=== PATIENT | male | born 1950 | race Caucasian/White ===

== ENCOUNTER 2016-12-21 16:25 | Observation (INO) | payer BC ==
[2016-12-21] MEDS ORDERED: HYDROmorphone 1 MG/ML 1 ML SYRINGE IVP STA (18:44)
[2016-12-21] MEDS ORDERED: SODIUM CHLORIDE 0.9% 1,000 ML IV STA (18:44)
--- NOTE | 2016-12-21 18:51 | ED ---
General Adult HPI - General Chief complaint: Urogenital Stated complaint: Male Time Seen by Provider: 12/21/16 18:28 Source: patient, RN notes reviewed Mode of arrival: ambulatory Limitations: no limitations - History of Present Illness Initial comments: 66 yo male presents to emergency room chief complaint of thrombosed hemorrhoids patient does have a history of hemorrhoids.. Patient states that he went to Dr. Haider's office today Dr. Mccabe states he could not do this here and that he needs to go to the emergency department and he needed to see Dr. Haider partner for surgery. The patient states that that is what he was told. He states that his primary issue started about 2 weeks ago and just gotten worse. Patient states is unable to sleep last night due to the hemorrhoids. Patient states that he is not on any blood thinners. Patient states that he is not currently having any symptoms. Patient states just a dull achy type pain in the anal area.Patient denies any recent fever, chills, shortness of breath, chest pain, back pain, abdominal pain, nausea vomiting, numbness or tingling, dysuria or hematuria, constipation or diarrhea, headaches or visual changes, or any other current symptoms. - Related Data Home Medications Medication Instructions Recorded Confirmed No Known Home Medications [No 12/21/16 12/21/16 Known Home Medications] Allergies Allergy/AdvReac Type Severity Reaction Status Date / Time amoxicillin AdvReac Abdominal Verified 12/21/16 18:57 Pain Antihistamines - Alkylamine AdvReac Unknown Verified 12/21/16 18:57 morphine AdvReac Itching Verified 12/21/16 18:57 Review of Systems ROS Statement: Those systems with pertinent positive or pertinent negative responses have been documented in the HPI. ROS Other: All systems not noted in ROS Statement are negative. Past Medical History Past Medical History: GERD/Reflux Additional Past Medical History / Comment(s): DVT, hemorrhoids History of Any Multi-Drug Resistant Organisms: None Reported Past Surgical History: Appendectomy, Back Surgery, Orthopedic Surgery, Tonsillectomy Past Psychological History: No Psychological Hx Reported Smoking Status: Never smoker Past Alcohol Use History: None Reported Past Drug Use History: None Reported General Exam Limitations: no limitations General appearance: alert, in no apparent distress ENT exam: Present: normal exam, mucous membranes moist Neck exam: Present: normal inspection. Absent: tenderness, meningismus, lymphadenopathy Respiratory exam: Present: normal lung sounds bilaterally. Absent: respiratory distress, wheezes, rales, rhonchi, stridor Cardiovascular Exam: Present: regular rate, normal rhythm, normal heart sounds. Absent: systolic murmur, diastolic murmur, rubs, gallop, clicks Rectal exam: Present: hemorrhoids (Thrombosed), tenderness Neurological exam: Present: alert, oriented X3, CN II-XII intact. Absent: motor sensory deficit Psychiatric exam: Present: normal affect, normal mood Skin exam: Present: warm, dry, intact, normal color. Absent: rash Course Vital Signs 12/21/16 12/21/16 17:17 18:57 Temperature 97.8 F Pulse Rate 84 87 Respiratory 20 15 Rate Blood Pressure 145/83 125/65 O2 Sat by Pulse 98 98 Oximetry Medical Decision Making - Medical Decision Making 66-year-old male presents to emergency room chief complaint of thrombosed external hemorrhoids. At this time patient's blood work is reviewed. Dr. Steward was contacted she wanted the patient started on Unasyn into the ampulla midnight for possible surgery in the morning. Patient in agreement with the plan. - Lab Data Result diagrams: 12/21/16 19:05 12/21/16 19:05 Lab Results 12/21/16 12/21/16 12/21/16 Range/Units 19:05 19:05 19:05 WBC 8.1 (3.8-10.6) k/uL RBC 4.86 (4.30-5.90) m/uL Hgb 15.9 (13.0-17.5) gm/dL Hct 46.6 (39.0-53.0) % MCV 95.9 (80.0-100.0) fL MCH 32.6 (25.0-35.0) pg MCHC 34.0 (31.0-37.0) g/dL RDW 13.0 (11.5-15.5) % Plt Count 164 (150-450) k/uL Neutrophils % 69 % Lymphocytes % 22 % Monocytes % 5 % Eosinophils % 1 % Basophils % 0 % Neutrophils # 5.6 (1.3-7.7) k/uL Lymphocytes # 1.8 (1.0-4.8) k/uL Monocytes # 0.4 (0-1.0) k/uL Eosinophils # 0.1 (0-0.7) k/uL Basophils # 0.0 (0-0.2) k/uL PT 11.9 (9.0-12.0) sec INR 1.2 (<1.1) APTT 26.6 (22.0-30.0) sec Sodium 139 (137-145) mmol/L Potassium 4.0 (3.5-5.1) mmol/L Chloride 101 (98-107) mmol/L Carbon Dioxide 24 (22-30) mmol/L Anion Gap 14 mmol/L BUN 12 (9-20) mg/dL Creatinine 1.09 (0.66-1.25) mg/dL Est GFR (MDRD) Af Amer >60 (>60 ml/min/1.73 sqM) Est GFR (MDRD) Non-Af >60 (>60 ml/min/1.73 sqM) Glucose 90 (74-99) mg/dL Calcium 9.5 (8.4-10.2) mg/dL Total Bilirubin 1.4 H (0.2-1.3) mg/dL AST 19 (17-59) U/L ALT 32 (21-72) U/L Alkaline Phosphatase 68 (38-126) U/L Total Protein 7.7 (6.3-8.2) g/dL Albumin 4.5 (3.5-5.0) g/dL Disposition Clinical Impression: Thrombosed external hemorrhoid Disposition: ADMITTED IP TO THIS [facility] Condition: Stable Time of Disposition: 19:43 Decision Date: 12/21/16 Decision Time: 19:44
[2016-12-21 19:17] LABS: Basophils % (A) 0 %; CH 33.3; CHCM 34.9; Eosinophils # (A) 0.1 k/uL (0-0.7); Eosinophils % (A) 1 %; HCT 46.6 % (39.0-53.0); HDW 2.66; HGB 15.9 gm/dL (13.0-17.5); Luc # (Auto) 0.19; Luc % (Auto) 2; Lymphocytes # (A) 1.8 k/uL (1.0-4.8); Lymphocytes % (A) 22 %; MCH 32.6 pg (25.0-35.0); MCV 95.9 fL (80.0-100.0); Mean Platelet Volume 8.2; Monocytes # (A) 0.4 k/uL (0-1.0); Monocytes % (A) 5 %; Neutrophils # (A) 5.6 k/uL (1.3-7.7); Neutrophils % (A) 69 %; RBC 4.86 m/uL (4.30-5.90); WBC 8.1 k/uL (3.8-10.6); WBC (Perox) 7.97
[2016-12-21] MEDS ORDERED: AMPICILLIN-SULBACTAM 3 GM in SODIUM CHLORIDE 0.9% 100 ML IVPB STA (19:21)
[2016-12-21 19:24] LABS: ALT 32 U/L (21-72); AST 19 U/L (17-59); Alkaline Phosphatase 68 U/L (38-126); Anion Gap 14 mmol/L; Blood Urea Nitrogen 12 mg/dL (9-20); Calcium 9.5 mg/dL (8.4-10.2); Carbon Dioxide 24 mmol/L (22-30); Chloride 101 mmol/L (98-107); Glucose 90 mg/dL (74-99); Non-African American GFR(MDRD) >60 (>60 ml/min/1.73 sqM); Sodium 139 mmol/L (137-145); Total Bilirubin 1.4 mg/dL (0.2-1.3); Total Protein 7.7 g/dL (6.3-8.2)
[2016-12-21 19:25] LABS: INR 1.2 (<1.1); Partial Thromboplastin Time 26.6 sec (22.0-30.0); Prothrombin Time 11.9 sec (9.0-12.0)
[2016-12-21] MEDS ORDERED: NALOXONE 0.4 MG/ML 1 ML VIAL IV PRN (19:44)
[2016-12-21] MEDS ORDERED: ALPRAZolam 0.25 MG TAB PO PRN (19:44)
[2016-12-21] MEDS ORDERED: ONDANSETRON 4 MG/2 ML VIAL IVP PRN (19:44)
[2016-12-21] MEDS ORDERED: MAGNESIUM HYDROXIDE 2,400 MG/10 ML CUP PO PRN (19:44)
[2016-12-21] MEDS ORDERED: ACETAMINOPHEN TAB 325 MG TAB PO PRN (19:44)
[2016-12-21] MEDS ORDERED: HYDROcodone/APAP 5-325MG 1 EACH TAB PO PRN (19:44)
[2016-12-21] MEDS: HYDROmorphone 1 MG/ML 1 ML SYRINGE IV PRN (22:24)
[2016-12-21] MEDS: SODIUM CHLORIDE 0.9% 1,000 ML IV SCH (22:25)
[2016-12-21] MEDS: AMPICILLIN-SULBACTAM 3 GM in SODIUM CHLORIDE 0.9% 100 ML IVPB SCH (23:13)
[2016-12-22] MEDS: HYDROmorphone 1 MG/ML 1 ML SYRINGE IV PRN ×3 (01:05→10:04)
[2016-12-22 07:10] LABS: Basophils % (A) 0 %; CH 32.9; CHCM 33.6; Eosinophils % (A) 1 %; HCT 44.6 % (39.0-53.0); HDW 2.63; HGB 14.7 gm/dL (13.0-17.5); Luc # (Auto) 0.18; Luc % (Auto) 2; Lymphocytes # (A) 1.4 k/uL (1.0-4.8); Lymphocytes % (A) 18 %; MCH 32.4 pg (25.0-35.0); MCHC 32.9 g/dL (31.0-37.0); MCV 98.3 fL (80.0-100.0); Mean Platelet Volume 8.1; Monocytes # (A) 0.4 k/uL (0-1.0); Monocytes % (A) 6 %; Neutrophils # (A) 5.6 k/uL (1.3-7.7); Neutrophils % (A) 73 %; RBC 4.54 m/uL (4.30-5.90); WBC 7.7 k/uL (3.8-10.6)
[2016-12-22 07:42] LABS: ALT 34 U/L (21-72); AST 15 U/L (17-59); Alkaline Phosphatase 56 U/L (38-126); Anion Gap 9 mmol/L; Blood Urea Nitrogen 11 mg/dL (9-20); Calcium 8.9 mg/dL (8.4-10.2); Carbon Dioxide 24 mmol/L (22-30); Chloride 106 mmol/L (98-107); Glucose 102 mg/dL (74-99); Non-African American GFR(MDRD) >60 (>60 ml/min/1.73 sqM); Sodium 139 mmol/L (137-145); Total Bilirubin 1.4 mg/dL (0.2-1.3); Total Protein 6.5 g/dL (6.3-8.2)
[2016-12-22] MEDS: AMPICILLIN-SULBACTAM 3 GM in SODIUM CHLORIDE 0.9% 100 ML IVPB SCH ×3 (07:42→23:32)
[2016-12-22 09:27] VITALS: BMI 27.8
[2016-12-22] MEDS ORDERED: IV FLUID CONTINUATION 400 ML IV ONE (10:25)
[2016-12-22] MEDS ORDERED: CLINDAMYCIN 600 MG in DEXTROSE 5% IN WATER 50 ML IVPB STA ×2 (10:40)
--- NOTE | 2016-12-22 10:43 | P.GSHP ---
History of Present Illness H&P Date: 12/22/16 Chief Complaint: painful hemorrhoids 4-year-old male who presented with perianal pain and bleeding. Going on for a few days. He is a history of hemorrhage. There is no history of nausea vomiting. Denies abdominal pain. No fever no chills. He does not use any suppositories. - Constitutional Constitutional: Denies chills, Denies fever - EENT Eyes: denies blurred vision, denies pain Ears, nose, mouth and throat: Denies headache, Denies sore throat - Cardiovascular Cardiovascular: Denies chest pain, Denies shortness of breath - Respiratory Respiratory: Denies cough, Denies 7 - Gastrointestinal Gastrointestinal: Denies abdominal pain, Denies diarrhea, Denies nausea, Denies vomiting - Musculoskeletal Musculoskeletal: Denies myalgias Past Medical History Past Medical History: GERD/Reflux Additional Past Medical History / Comment(s): DVT, hemorrhoids History of Any Multi-Drug Resistant Organisms: None Reported Past Surgical History: Appendectomy, Back Surgery, Orthopedic Surgery, Tonsillectomy Past Psychological History: No Psychological Hx Reported Smoking Status: Former smoker Past Alcohol Use History: None Reported Past Drug Use History: None Reported Medications and Allergies Home Medications Medication Instructions Recorded Confirmed Type No Known Home Medications [No 12/21/16 12/21/16 History Known Home Medications] Allergies Allergy/AdvReac Type Severity Reaction Status Date / Time amoxicillin AdvReac Abdominal Verified 12/22/16 10:26 Pain Antihistamines - Alkylamine AdvReac Unknown Verified 12/22/16 10:26 morphine AdvReac Itching Verified 12/22/16 10:26 Surgical - Exam Vital Signs Temp Pulse Resp BP Pulse Ox 97.8 F 84 20 145/83 98 12/21/16 17:17 12/21/16 17:17 12/21/16 17:17 12/21/16 17:17 12/21/16 17:17 - General well developed, well nourished, no distress - Eyes normal ocular movement, no icteric - ENT no hearing loss, no congestion - Respiratory normal expansion - Cardiovascular Rhythm: regular - Abdomen Anal region was inspected and there were congested hemorrhoids. Abdomen: soft, non tender, no guarding, no rigid, no rebound Results - Labs 12/22/16 06:36 12/22/16 06:36 Abnormal Lab Results - Last 24 Hours (Table) 12/22/16 Range/Units 06:36 Glucose 102 H (74-99) mg/dL Total Bilirubin 1.4 H (0.2-1.3) mg/dL AST 15 L (17-59) U/L Diabetes panel 12/22/16 Range/Units 06:36 Sodium 139 (137-145) mmol/L Potassium 5.0 (3.5-5.1) mmol/L Chloride 106 (98-107) mmol/L Carbon Dioxide 24 (22-30) mmol/L BUN 11 (9-20) mg/dL Creatinine 0.99 (0.66-1.25) mg/dL Glucose 102 H (74-99) mg/dL Calcium 8.9 (8.4-10.2) mg/dL AST 15 L (17-59) U/L ALT 34 (21-72) U/L Alkaline Phosphatase 56 (38-126) U/L Total Protein 6.5 (6.3-8.2) g/dL Albumin 3.8 (3.5-5.0) g/dL Calcium panel 12/22/16 Range/Units 06:36 Calcium 8.9 (8.4-10.2) mg/dL Albumin 3.8 (3.5-5.0) g/dL Pituitary panel 12/22/16 Range/Units 06:36 Sodium 139 (137-145) mmol/L Potassium 5.0 (3.5-5.1) mmol/L Chloride 106 (98-107) mmol/L Carbon Dioxide 24 (22-30) mmol/L BUN 11 (9-20) mg/dL Creatinine 0.99 (0.66-1.25) mg/dL Glucose 102 H (74-99) mg/dL Calcium 8.9 (8.4-10.2) mg/dL Adrenal panel 12/22/16 Range/Units 06:36 Sodium 139 (137-145) mmol/L Potassium 5.0 (3.5-5.1) mmol/L Chloride 106 (98-107) mmol/L Carbon Dioxide 24 (22-30) mmol/L BUN 11 (9-20) mg/dL Creatinine 0.99 (0.66-1.25) mg/dL Glucose 102 H (74-99) mg/dL Calcium 8.9 (8.4-10.2) mg/dL Total Bilirubin 1.4 H (0.2-1.3) mg/dL AST 15 L (17-59) U/L ALT 34 (21-72) U/L Alkaline Phosphatase 56 (38-126) U/L Total Protein 6.5 (6.3-8.2) g/dL Albumin 3.8 (3.5-5.0) g/dL Assessment and Plan (1) Thrombosed external hemorrhoid Status: Acute Plan: Plan is to do an EUA with open omentectomy. The patient is significantly painful he understands and is willing to proceed.
[2016-12-22] MEDS ORDERED: BUPIVACAINE LIPOSOME/PF 1.3% 20 ML, SODIUM CHLORIDE 0.9% 10 ML MISCELLANE ONE ×2 (10:44)
[2016-12-22] MEDS ORDERED: LACTATED RINGERS 1,000 ML IV ONE (10:57)
[2016-12-22] MEDS ORDERED: fentaNYL (PF) 50 MCG/ML 2 ML AMP ONE (11:08)
[2016-12-22] MEDS ORDERED: LIDOCAINE 1% INJ 10MG/ML (20 ML MDV) ONE (11:08)
[2016-12-22] MEDS ORDERED: MIDAZOLAM 2 MG/2 ML VIAL ONE (11:08)
[2016-12-22] MEDS ORDERED: PROPOFOL 10 MG/ML 20 ML VIAL IV ONE (11:08)
[2016-12-22] MEDS ORDERED: SUCCINYLCHOLINE CHLORIDE 100 MG/5 ML SYR IV ONE (11:08)
--- NOTE | 2016-12-22 12:49 | P.OP ---
Date of Procedure: 12/22/16 Preoperative Diagnosis: Thrombosed hemorrhois Postoperative Diagnosis: Thrombosed internal and external hermohoid Procedure(s) Performed: Open hemorrhoidectomy with ligasure Anesthesia: PAGE Surgeon: Norberto Bass Estimated Blood Loss (ml): 15 Pathology: other Condition: stable Disposition: PACU Indications for Procedure: Painful swollen hemorrhoids Operative Findings: Right anterior internal and external hemorrhoids were thrombosed. No other hemorrhoids were identified. Description of Procedure: 66-year-old male who presented with a thrombosed hemorrhoid and severe pain and bleeding per rectum with bowel movements. Patient wouldn't fit in the preop operating holding area and after appropriate informed consent was obtained taken to the operating room placed in the supine position and given general anesthesia with LMA intubation. The patient was then placed in prone jackknife position. The area was clipped and prepped in the usual sterile surgical fashion was appropriately retracted with the help of tape. After appropriate timeout the enlarged hemorrhoid was first well exposed with the help of retractor and then grasped with the help of an Allis brought up into division. Ligature was used to dissection along the base of the hemorrhoid tests excising the entire hemorrhoid and its plexus. Care was taken to stay above the anal sphincter not to injure that. The eviction specialist was however exposed and one area. It was however not bleeding. Once the complete Right Anterior Internal and Internal Hemorrhoidal Vessel Plexus Was Completely Removed the left anterior and posterior hemorrhoidal cushions were inspected and were noted to be of normal size. They were not removed at this setting. His no bleeding from the liver not swollen. After removal of the entire right anterior hemorrhoidal plexus the perianal swelling also reduced. Hemostasis was secured secondarily with the help of 2-0 Vicryl stitches. Vaseline dressing was applied and ABDs was held in place with the help of a underpants. Patient was exudate and taken to recovery room in stable condition.
--- NOTE | 2016-12-22 12:52 | P.DS ---
Providers Date of admission: 12/21/16 20:58 Expected date of discharge: 12/23/16 Attending physician: Hillary Steward Primary care physician: Wayne Amaya - Discharge Diagnosis(es) (1) Thrombosed external hemorrhoid Current Visit: Yes Status: Acute Hospital Course: A 66-year-old male who was initially seen in the office on December 21 but due to the size of the thrombosed external hemorrhoid the patient was sent to the emergency room but he came to the emergency room late around 7 PM and therefore was kept overnight nothing by mouth for the procedure be performed on December 22. The patient underwent an EUA with open hemorrhoidectomy using ligature. Patient TO well though no complications. Postoperatively the patient did well. Intraoperatively extra was used. Postoperatively the patient's diet was advanced and he was placed milk of magnesia. Has. He was given instruction regarding sitz baths. Patient is to follow-up in my clinic after discharge in a week. Is to use milk of magnesia regularly and uses baths for that. A type buccal pain medications were prescribed for discharge. Procedures: OPen hmerhoidectomy with ligasure Patient Condition at Discharge: Fair Plan - Discharge Summary New Discharge Prescriptions: HYDROcodone/APAP 5-325MG [[place] 5-325] 1 tab PO Q4HR PRN #40 tab PRN Reason: Pain Magnesium Hydroxide [Milk of Magnesia] 30 ml PO Q24H #1200 ml Discharge Medication List HYDROcodone/APAP 5-325MG [[place] 5-325] 1 tab PO Q4HR PRN #40 tab 12/22/16 [Rx] Magnesium Hydroxide [Milk of Magnesia] 30 ml PO Q24H #1200 ml 12/22/16 [Rx] Follow up Appointment(s)/Referral(s): Norberto Bass MD [STAFF PHYSICIAN] - 1 Week Wayne Amaya MD [Primary Care Provider] - 1-2 days Patient Instructions/Handouts: Hemorrhoids (DC), Hemorrhoids (GEN), Thrombosed Hemorrhoid (GEN), Hemorrhoidectomy (DC), Hemorrhoidectomy (GEN) Activity/Diet/Wound Care/Special Instructions: Regular diet Use Sizt bath 3- 4 times a day Use stool softeners as needed Start taking motrin withe the norco in 2 days and then wean off the norco and use motrin Discharge Disposition: HOME SELF-CARE
[2016-12-22] MEDS: SODIUM CHLORIDE 0.9% 1,000 ML IV SCH (23:33)
[2016-12-23] MEDS: SODIUM CHLORIDE 0.9% 1,000 ML IV SCH (05:05)
[2016-12-23] MEDS: AMPICILLIN-SULBACTAM 3 GM in SODIUM CHLORIDE 0.9% 100 ML IVPB SCH (07:35)
[2016-12-23 07:41] VITALS: BP 138/80; PULSE 78; RESP 15; TEMP 98.6
== END 2016-12-23 13:19 | disposition home or self-care (01) ==
LOC: EC 16:25 → 3SUR 20:58
PROVIDERS: ADMIT Surgery; ATTEND Surgery
DX: K64.5 Perianal venous thrombosis (principal); Z87.891 Personal history of nicotine dependence; Z88.5 Allergy status to narcotic agent; Z88.0 Allergy status to penicillin; Z88.8 Allergy status to other drugs, medicaments and biological substances
CPT/HCPCS: 46255; 36415; 86900; 86901; 88304; 80053 ×2; 85025 ×2; 85610; 85730; 86850; 99284; 96365; 96375; 96361; G0378 ×3; J2250; J2405; J2001; J3010; J1170 ×2; J0295 ×3; J0330; C9290; J2704; 96366; 96376

== ENCOUNTER 2018-01-30 11:56 | Inpatient (IN) | payer BC ==
[2018-01-30] MEDS ORDERED: ASPIRIN 81 MG PO STA (12:20)
[2018-01-30] MEDS ORDERED: SODIUM CHLORIDE 0.9% 1,000 ML IV STA (12:20)
[2018-01-30] MEDS ORDERED: ONDANSETRON 4 MG/2 ML VIAL IVP STA (12:20)
[2018-01-30] MEDS ORDERED: NITROGLYCERIN OINT 1 INCH/GM PACKET TOPICAL STA (12:20)
[2018-01-30 12:43] LABS: Basophils % (A) 0 %; Eosinophils # (A) 0.1 k/uL (0-0.7); Eosinophils % (A) 1 %; HCT 45.8 % (39.0-53.0); HGB 16.6 gm/dL (13.0-17.5); Lymphocytes # (A) 1.8 k/uL (1.0-4.8); Lymphocytes % (A) 20 %; MCH 33.3 pg (25.0-35.0); MCHC 36.2 g/dL (31.0-37.0); MCV 91.9 fL (80.0-100.0); Mean Platelet Volume 8.5; Monocytes # (A) 0.5 k/uL (0-1.0); Monocytes % (A) 5 %; Neutrophils # (A) 6.2 k/uL (1.3-7.7); Neutrophils % (A) 71 %; Platelet Count 150 k/uL (150-450); RBC 4.98 m/uL (4.30-5.90); RDW 12.1 % (11.5-15.5); WBC 8.7 k/uL (3.8-10.6)
--- NOTE | 2018-01-30 12:51 | XR ---
EXAMINATION TYPE: XR chest 2V DATE OF EXAM: 01/30/2018 COMPARISON: 01/18/2016 HISTORY: Shortness of breath TECHNIQUE: Frontal and lateral views of the chest are obtained. FINDINGS: Scattered senescent parenchymal changes noted. Hyperinflation compatible with COPD. No evidence for infiltrate. No evidence for atelectasis. Heart size is stable. Mediastinal structures are stable and grossly unremarkable. No evidence for hilar prominence. Degenerative changes dorsal spine. IMPRESSION: 1. No evidence for acute pulmonary disease.
[2018-01-30 12:59] LABS: INR 1.1 (<1.2); Partial Thromboplastin Time 24.7 sec (22.0-30.0); Prothrombin Time 10.4 sec (9.0-12.0)
[2018-01-30 13:04] LABS: D-Dimer 9.08 mg/L FEU (<0.60)
[2018-01-30 13:08] LABS: Albumin 4.2 g/dL (3.5-5.0); Calcium 9.9 mg/dL (8.4-10.2); Potassium 5.3 mmol/L (3.5-5.1); Total Bilirubin 1.6 mg/dL (0.2-1.3); Total Protein 7.4 g/dL (6.3-8.2)
[2018-01-30 13:22] LABS: Creatine Kinase 31 U/L (55-170)
[2018-01-30 13:35] LABS: Creatine Kinase MB <0.2 ng/mL (0.0-2.4); Troponin I <0.012 ng/mL (0.000-0.034)
[2018-01-30] MEDS ORDERED: RX INFO: IV CONTRAST WAS GIVEN 1 EACH MISC MISCELLANE PRN (14:32)
--- NOTE | 2018-01-30 15:14 | CT ---
EXAMINATION TYPE: CT chest angio for PE DATE OF EXAM: 01/30/2018 COMPARISON: NONE HISTORY: chest pain today, r/o PE CT DLP: 527 mGycm CONTRAST: CT chest with contrast and 3D reconstruction with MIP imaging is performed with IV Contrast, patient injected with 96cc mL of Isovue 370. Contrast-enhanced CT of the chest was performed through the course of the pulmonary arteries with harvey g and mediastinal window settings submitted. 3D reconstruction with MIP imaging was also performed. PULMONARY ARTERIES: There is bilateral at least moderate pulmonary embolism with filling of the right pulmonary artery and extension into the right lower pulmonary arterial branches and to a lesser exte nt the right upper lobe pulmonary arterial branches. To a lesser extent there is thrombus within the left main pulmonary artery extending into the left lower lobe pulmonary arterial branches. Relative s paring of the left upper lobe branches. Early features of right heart strain difficult to exclude giv en flattening of the interventricular septum and reflux of contrast into the inferior vena cava. Engo rged azygous system noted as well. LUNGS: The lungs are clear and free of infiltrate. No evidence for atelectasis. No pulmonary nodule or mass is detected. Small left-sided pleural effusion noted. MEDIASTINUM: Thoracic aorta is of nor mal caliber,however, evaluation is limited given timing of the contrast bolus. If there is concern f or thoracic aortic pathology consider KACIE. Correlate clinically . The heart is not enlarged. No madison dence for mediastinal mass. No mediastinal lymph nodes greater than 1cm. HILAR STRUCTURES: No evidence for mass. No hilar lymph nodes greater than 1 cm. UPPER ABDOMEN: No significant abnormality is seen. IMPRESSION: 1. Moderately severe pulmonary embolism as discussed above. Early right heart strain difficult to ex clude. Small left-sided pleural effusion. ER physician notified at time of exam completion via telephone by the undersigned.
--- NOTE | 2018-01-30 15:33 | ED ---
Chest Pain HPI - General Chief Complaint: Chest Pain Stated Complaint: Chest Pain Time Seen by Provider: 01/30/18 12:12 Source: patient Mode of arrival: wheelchair Limitations: no limitations - History of Present Illness Initial Comments: 68 years old male comes in with a chest pain, chest pain started this morning he is also short winded and he said pain gets worse when he takes a deep breath have a history of gastroesophageal reflux disease DVT he said DVT was years ago and chest pain started about 10 AM today lasted about 2 and half hour just ongoing and worse with deep breaths he denies any fever no chills no headaches no neck stiffness no abdominal pain no frequency urgency dysuria no symptoms like TIA or CVA - Related Data Home Medications Medication Instructions Recorded Confirmed L.acidoph,Paracasei, B.lactis 1 cap PO DAILY 01/30/18 01/30/18 [Probiotic] Multivitamins, Thera [Multivitamin 1 tab PO DAILY 01/30/18 01/30/18 (formulary)] Omeprazole 20 mg PO DAILY PRN 01/30/18 01/30/18 Wheat Dextrin [Benefiber] 1 pack PO DAILY 01/30/18 01/30/18 Allergies Allergy/AdvReac Type Severity Reaction Status Date / Time amoxicillin AdvReac Abdominal Verified 01/30/18 12:25 Pain Antihistamines - Alkylamine AdvReac Unknown Verified 01/30/18 12:25 morphine AdvReac Itching Verified 01/30/18 12:25 Review of Systems ROS Statement: Those systems with pertinent positive or pertinent negative responses have been documented in the HPI. ROS Other: All systems not noted in ROS Statement are negative. EKG Findings - EKG Comments: EKG Findings:: EKG is a normal sinus rhythm ventricular rate is 89 LA interval is 178 QRS duration is 82 QT/QTC 358/435 review of this EKG does not reveal any ST elevation or ST depression Past Medical History Past Medical History: GERD/Reflux Additional Past Medical History / Comment(s): DVT, hemorrhoids History of Any Multi-Drug Resistant Organisms: None Reported Past Surgical History: Appendectomy, Back Surgery, Orthopedic Surgery, Tonsillectomy Past Psychological History: No Psychological Hx Reported Smoking Status: Former smoker Past Alcohol Use History: None Reported Past Drug Use History: None Reported General Exam - General Exam Comments Initial Comments: General: The patient is awake and alert, in no distress, and does not appear acutely ill. Skin: Skin is warm and dry and no rashes or lesions are noted. Eye: Pupils are equal, round and reactive to light, extra-ocular movements are intact; there is normal conjunctiva bilaterally. Ears, nose, mouth and throat: There are moist mucous membranes and no oral lesions. Neck: The neck is supple, there is no tenderness or JVD. Cardiovascular: There is a regular rate and rhythm. No murmur, rub or gallop is appreciated. Respiratory: To auscultation bilateral, no wheezing no rhonchi no distress respiratory johnson noticed Gastrointestinal: Soft, non-distended, non-tender abdomen without masses or organomegaly noted. There is no rebound or guarding present. Bowel sounds are unremarkable. Back: There is no tenderness to palpation in the midline. There is no obvious deformity. Musculoskeletal: Normal ROM, no tenderness, There is no pedal edema. There is no calf tenderness or swelling. No cords were appreciated. Neurological: CN II-XII intact, Cranial nerves III through XII are intact. There are no obvious motor or sensory deficits. Coordination appears grossly intact. Speech is normal. Psychiatric: Cooperative, appropriate mood & affect, normal judgment. Limitations: no limitations Course Vital Signs 01/30/18 01/30/18 01/30/18 11:58 12:51 14:25 Temperature 98.5 F Pulse Rate 93 76 79 Respiratory 18 17 18 Rate Blood Pressure 118/89 138/87 111/68 O2 Sat by Pulse 98 96 95 Oximetry 01/30/18 15:33 Temperature Pulse Rate 74 Respiratory 17 Rate Blood Pressure 120/78 O2 Sat by Pulse 97 Oximetry Critical Care Time Total Critical Care Time: 45 Critical Care Time: (Up for the heart disease, troponin is unremarkable cervical spine EKG, CBC was normal d-dimer is quite elevated as was greater than 9, we followed up with that CT angiogram chest, that's remarkable there is positive radiology called me back positive PE and right heart strain a bit of for pleural effusion, patient be admitted to Dr. Izquierdo's service and will consult cardiology she be heparinized in the ER Disposition Clinical Impression: Chest pain Disposition: ADMITTED IP TO THIS HOSP Condition: Good Referrals: Wayne Amaya MD [Primary Care Provider] - 1-2 days
[2018-01-30] MEDS ORDERED: HEPARIN SODIUM,PORCINE 5,000 UNIT/ML 1 ML VIAL IV ONE (15:37)
[2018-01-30] MEDS ORDERED: HEPARIN SODIUM,PORCINE 5,000 UNIT/ML 1 ML VIAL IV PRN (15:37)
[2018-01-30] MEDS ORDERED: ONDANSETRON 4 MG/2 ML VIAL IVP PRN (15:38)
[2018-01-30] MEDS ORDERED: ACETAMINOPHEN TAB 325 MG TAB PO PRN (15:38)
[2018-01-30] MEDS ORDERED: NALOXONE 0.4 MG/ML 1 ML VIAL IV PRN (15:38)
[2018-01-30] MEDS ORDERED: MORPHINE SULFATE 4 MG/ML SYRINGE IV PRN (15:38)
[2018-01-30] MEDS ORDERED: PANTOPRAZOLE 40 MG TABLET PO PRN (15:44)
[2018-01-30] MEDS: HEPARIN SOD,PORK IN 0.45% NACL 25,000 UNIT in 0.45% NACL 1 500ML.BAG IV SCH (16:04)
--- NOTE | 2018-01-30 20:00 | P.CNPUL ---
History of Present Illness Consult date: 01/30/18 Reason for consult: pulmonary embolism History of present illness: A pleasant 68-year-old male patient who presented to the emergency department because of an acute left-sided chest pain that was some what pleuritic in nature that started around 10 AM this morning and the patient was quite concerning for that reason he presented to hospital where he was found to have an elevated d-dimer and subsequently CT angios the chest showed bilateral pulmonary embolism more so on the right with early strain pattern involving the right ventricle. Troponins were negative. The patient was started on IV heparin and patient was admitted to the floor. Note that the patient was having symptoms of URI approximately 10 days ago. He had seen his primary care physician and he was given a course of Z-Ovi. His cough and congestion wheezing was subsiding. He is not known to have any previous history of lung disease or disorder. No history of bronchial asthma or emphysema. No previous history of pulmonary embolism. 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 He refers to smoking history that was very limited for only 10 years at the young age. 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 He admits that he has become sedentary after his recent URI and he was staying at home and not doing all other activity or walking. No history of malignancy. No history of any recent orthopedic surgeries. Has had previous back surgery back in 1999 and 2001 and the surgeries were essentially uncomplicated. Currently is hemodynamically stable. He is afebrile. He is on 2 L of oxygen nasal cannula with a pulse ox of 96% and no swelling lower extremities. No calf pain or tenderness. Remains on IV heparin. Review of Systems Constitutional: Denies chills, Denies fever Eyes: denies blurred vision, denies bulging eye, denies decreased vision Ears: right: tinnitus, deny: decreased hearing, ear discharge, earache Ears, nose, mouth and throat: Denies headache, Denies sore throat Cardiovascular: Reports chest pain, Reports decreased exercise tolerance, Reports shortness of breath Respiratory: Reports dyspnea, Reports respiratory infections, Reports wheezing Gastrointestinal: Denies abdominal pain, Denies diarrhea, Denies nausea, Denies vomiting Genitourinary: Reports as per HPI Musculoskeletal: Denies myalgias Musculoskeletal: absent: ankle pain, ankle stiffness, ankle swelling Integumentary: Denies pruritus, Denies rash Neurological: Denies numbness, Denies weakness Psychiatric: Denies anxiety, Denies depression Endocrine: Denies fatigue, Denies weight change Hematologic/Lymphatic: Reports as per HPI Allergic/Immunologic: Reports as per HPI Past Medical History Past Medical History: GERD/Reflux Additional Past Medical History / Comment(s): DVT, hemorrhoids History of Any Multi-Drug Resistant Organisms: None Reported Past Surgical History: Appendectomy, Back Surgery (Previous L4/L5 laminectomy done in the year 1999 and 2011), Orthopedic Surgery, Tonsillectomy Past Psychological History: No Psychological Hx Reported Smoking Status: Former smoker Past Alcohol Use History: None Reported Past Drug Use History: None Reported Medications and Allergies Home Medications Medication Instructions Recorded Confirmed Type L.acidoph,Paracasei, B.lactis 1 cap PO DAILY 01/30/18 01/30/18 History [Probiotic] Multivitamins, Thera [Multivitamin 1 tab PO DAILY 01/30/18 01/30/18 History (formulary)] Omeprazole 20 mg PO DAILY PRN 01/30/18 01/30/18 History Wheat Dextrin [Benefiber] 1 pack PO DAILY 01/30/18 01/30/18 History Allergies Allergy/AdvReac Type Severity Reaction Status Date / Time amoxicillin AdvReac Abdominal Verified 01/30/18 12:25 Pain Antihistamines - Alkylamine AdvReac Unknown Verified 01/30/18 12:25 morphine AdvReac Itching Verified 01/30/18 12:25 Physical Exam Vitals: Vital Signs Temp Pulse Pulse Resp BP BP Pulse Ox 01/30/18 18:15 97.2 F L 96 18 118/70 96 01/30/18 17:48 97.0 F L 97 17 116/67 97 01/30/18 15:33 74 17 120/78 97 01/30/18 14:25 79 18 111/68 95 01/30/18 12:51 76 17 138/87 96 01/30/18 11:58 98.5 F 93 18 118/89 98 Intake and Output 01/30/18 01/30/18 01/30/18 06:59 14:59 22:59 Other: Weight 95.254 kg The patient appeared well nourished and normally developed. Vital signs as documented. Head exam is unremarkable. No scleral icterus or corneal arcus noted. Neck is without jugular venous distension, thyromegaly, or carotid bruits. Carotid upstrokes are brisk bilaterally. Lungs are clear to auscultation and there is some prolongation of the expiratory phase of breathing and scattered expiratory wheezes throughout the lung alonzo bilaterally. Cardiac exam reveals the PMI to be normally sized and situated. Rhythm is regular. First and second heart sounds normal. No murmurs, rubs or gallops. Abdominal exam reveals normal bowel sounds, no masses, no organomegaly and no aortic enlargement. Extremities are nonedematous and both femoral and pedal pulses are normal. Neurologically the patient is awake and alert and the patient has no focal neurological deficit.Examination of the skin revealed no evidence of significant rashes, suspicious appearing nevi or other concerning lesions. Psychiatric to the patient is appropriate mood and affect Results - Laboratory Findings CBC and BMP: 01/30/18 12:10 01/30/18 12:10 PT/INR, D-dimer PT 10.4 sec (9.0-12.0) 01/30/18 12:10 INR 1.1 (<1.2) 01/30/18 12:10 D-Dimer 9.08 mg/L FEU (<0.60) H 01/30/18 12:10 Abnormal lab findings: Abnormal Labs 01/30/18 01/30/18 01/30/18 12:10 12:10 12:10 D-Dimer 9.08 H Potassium 5.3 H Total Bilirubin 1.6 H ALT 16 L Total Creatine Kinase 31 L - Diagnostic Findings Chest x-ray: image reviewed CT scan - chest: image reviewed Assessment and Plan Plan: Assessment 1 acute pulmonary embolism, bilateral, more so on the right involving the right upper lobe middle lobe and right lower lobe pulmonary artery branches and to lesser extent involving the left lower lobe and left main pulmonary artery branches. This is an unprovoked event. The patient had a recent URI with symptoms of bronchitis and he states that he has been essentially sedentary. Otherwise no other identifiable risk factors. He has had a previous history of DVT more than 15 years ago. 2 acute pleuritic left-sided chest pain secondary to above 3 acute bronchitis treated on outpatient basis with a course of Z-Ovi. The patient remains bronchospastic and wheezy. No evidence of any pneumonia 4 remote history of DVT of the left lower extremity Plan Keep the patient IV heparin. Obtain Doppler of the lower extremities. Obtain echocardiogram to assess LV function and look for any right ventricular strain pattern and measure pulmonary artery pressures if possible. We'll transition this patient to oral anticoagulants with the next 24 hours. In terms of his bronchospasm and wheezing, the patient will be started on DuoNeb nebulized treatments around the clock, start the patient on low dose IV Solu Medrol 40 mg every 6 hours and taper to oral prednisone burst taper once more stable. This is likely recurrent event and the patient may benefit from long-term anticoagulation. 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 In addition, the lying asthmatic component is suspected in this patient. Outpatient pulmonary function test will be done. We'll continue to follow.
[2018-01-30] MEDS: IPRATROPIUM-ALBUTEROL 3 ML NEB INHALATION SCH (20:37)
--- NOTE | 2018-01-30 21:31 | US ---
EXAMINATION TYPE: US venous doppler duplex LE DATE OF EXAM: 01/30/2018 8:30 PM COMPARISON: NONE CLINICAL HISTORY: PE. PE on blood thinners. Patient states hx of DVT years ago. SIDE PERFORMED: Bilateral TECHNIQUE: The lower extremity deep venous system is examined utilizing real time linear array sonog trevor with graded compression, doppler sonography and color-flow sonography. VESSELS IMAGED: External Iliac Vein (EIV) Common Femoral Vein Deep Femoral Vein Greater Saphenous Vein * Femoral Vein Popliteal Vein Small Saphenous Vein * Proximal Calf Veins (* superficial vessels) Right Leg: Negative for DVT Left Leg: Negative for DVT No evidence of DVT bilateral legs. IMPRESSION: Negative exam. No evidence of deep venous thrombosis in both legs.
[2018-01-30] MEDS: methylPREDNISolone SOD SUCCI 40 MG/ML 1 ML VIAL IV SCH (23:28)
[2018-01-31 02:47] LABS: Basophils % (A) 0 %; Eosinophils # (A) 0.1 k/uL (0-0.7); Eosinophils % (A) 1 %; HGB 14.4 gm/dL (13.0-17.5); Lymphocytes # (A) 0.8 k/uL (1.0-4.8); Lymphocytes % (A) 9 %; MCH 32.9 pg (25.0-35.0); MCHC 35.2 g/dL (31.0-37.0); MCV 93.5 fL (80.0-100.0); Mean Platelet Volume 8.2; Monocytes # (A) 0.2 k/uL (0-1.0); Monocytes % (A) 3 %; Neutrophils # (A) 7.9 k/uL (1.3-7.7); Neutrophils % (A) 87 %; Platelet Count 140 k/uL (150-450); RBC 4.38 m/uL (4.30-5.90); RDW 12.3 % (11.5-15.5)
[2018-01-31] MEDS: methylPREDNISolone SOD SUCCI 40 MG/ML 1 ML VIAL IV SCH ×4 (06:12→23:29)
[2018-01-31] MEDS: HEPARIN SOD,PORK IN 0.45% NACL 25,000 UNIT in 0.45% NACL 1 500ML.BAG IV SCH ×2 (06:13→22:15)
[2018-01-31] MEDS: IPRATROPIUM-ALBUTEROL 3 ML NEB INHALATION SCH ×4 (07:56→19:16)
[2018-01-31] MEDS: LACTOBACILLUS ACIDOPH & BULGAR 1 EACH PACKET PO SCH (08:15)
[2018-01-31] MEDS ORDERED: PSYLLIUM HUSK 100% 6 GM PACKET PO SCH ×2 (09:00)
--- NOTE | 2018-01-31 11:11 | CONS ---
CONSULTATION CHIEF COMPLAINT: Chest pain. Moises is a 68-year-old gentleman with no significant past medical history who presented to [facility] complaining of chest pain. He describes it as a sudden onset left-sided chest pain, moderate to severe intensity, came on at rest, worsened with deep breathing. Due to this, he was evaluated in the emergency room. His EKG does not reveal significant EKG changes. He went on to have a CAT scan of the chest that showed bilateral pulmonary embolism for which Cardiology had been consulted. His D-dimer was elevated at 9. Troponins are negative. At the time of my evaluation this morning, patient appears comfortable at rest, chest pain-free and is not in respiratory distress. His heart rate is around 88 to 90 beats, O2 sat is 95% on room air. The patient does not require thrombolytics or thrombectomy. The patient will continue on heparin. We will see whether he is covered for Xarelto or Eliquis. If he is, will switch him to it and hopefully can be discharged home tomorrow. The patient for the last 2 weeks has also had bronchitis and is currently recovering from it. PAST MEDICAL HISTORY: Past medical history is negative for hypertension diabetes, dyslipidemia. MEDICATIONS: None. ALLERGIES: Allergic to AMOXICILLIN and MORPHINE. FAMILY HISTORY: Family history is negative for premature coronary artery disease. SOCIAL HISTORY: Negative for current smoking, EtOH abuse, or drug abuse. REVIEW OF SYSTEMS: HEENT is unremarkable. CARDIAC: As described above. RESPIRATORY: As described above. GI: Negative. GENITOURINARY: Negative. ALLERGY/IMMUNOLOGICAL: Negative. SKIN: Negative. MUSCULOSKELETAL: Negative. ENDOCRINE: Negative. DERM: Negative. CONSTITUTIONAL: Negative. ONCOLOGICAL: Negative. HEMATOLOGICAL: Negative. Rest of the system review is not relevant. PHYSICAL EXAM: On exam, comfortable at rest. Afebrile. Vital signs are stable. There is no jugular venous distention. Chest exam reveals occasional rhonchi bilaterally. Heart exam reveals first and second heart sounds. No gallop. Has a grade 3/6 systolic murmur at the apex. Abdomen is soft. Examination of extremities did not reveal edema. Peripheral pulses are felt. EKG is negative for ischemic changes. Troponins are negative. Creatinine is normal at 1. D-dimer is elevated. CT chest is positive for bilateral pulmonary embolism, more on the right than on the left. ASSESSMENT: 1. Acute bilateral pulmonary embolism and pleuritic pain related to it. 2. Heart murmur, rule out significant valvular heart disease. 3. Acute bronchitis. PLAN: We will continue the IV heparin, obtain a 2D echo. The patient does not require thrombolytics. He is hemodynamically stable, oxygenating well. The patient has had one episode of DVT 15 years ago and had this pulmonary embolism without any clear-cut precipitating event. He will need lifetime anticoagulation which will be monitored and administered through my office. MMNARCISAL / IJN: [id number] /
[2018-01-31] MEDS ORDERED: MULTIVITAMINS, THERA 1 EACH TAB PO SCH (12:00)
--- NOTE | 2018-01-31 15:23 | P.HPIM ---
History of Present Illness H&P Date: 01/31/18 This is a 68-year-old male patient of Dr. Amaya with past medical history for gastroesophageal reflux disease, hemorrhoids, DVT in the left lower extremity more than 15 years ago. Patient states that he has had a cold symptoms 2 weeks ago and yesterday he woke up with chest pain. He gives history that he has flown back and forth to [place] 3 times in the past 6 weeks. He denies any lower extremity pain. He also has a sister that has a factor V deficiency and no other family members have problems with DVT or pulmonary embolism. Patient came into [facility] emergency center for evaluation and was found to have an elevated d-dimer and underwent a CAT scan angiogram of the chest that showed bilateral pulmonary embolism more so on the right with early strain pattern involving the right ventricle. Troponins were negative. Patient was started on IV heparin and admitted to the selective care unit and he has been seen in consultation by pulmonary medicine and cardiology. Patient denies any significant chest pain at this time. He states he feels tired and did not get a lot of sleep. He subsequently undergone Doppler of the lower extremities that was negative bilaterally. Review of Systems All systems: negative Constitutional: Denies anorexia, Denies chills, Denies fatigue, Denies fever, Denies poor appetite, Denies weakness, Denies weight loss Eyes: denies blurred vision, denies pain Ears, nose, mouth and throat: Denies headache, Denies sore throat Cardiovascular: Reports chest pain, Reports decreased exercise tolerance, Reports dyspnea on exertion, Reports shortness of breath, Denies edema, Denies leg edema, Denies lightheadedness, Denies syncope Respiratory: Reports cough, Reports dyspnea, Reports wheezing, Denies cough with sputum, Denies excessive sputum, Denies hemoptysis, Denies home oxygen Gastrointestinal: Denies abdominal pain, Denies diarrhea, Denies nausea, Denies vomiting Genitourinary: Denies dysuria Musculoskeletal: Denies frequent falls, Denies gait dysfunction, Denies myalgias Integumentary: Denies pruritus, Denies rash Neurological: Denies numbness, Denies weakness Psychiatric: Denies anxiety, Denies depression Endocrine: Denies fatigue, Denies weight change Past Medical History Past Medical History: GERD/Reflux Additional Past Medical History / Comment(s): DVT more than 15 years ago, hemorrhoids History of Any Multi-Drug Resistant Organisms: None Reported Past Surgical History: Appendectomy, Back Surgery (Previous L4/L5 laminectomy done in the year 1999 and 2011), Orthopedic Surgery, Tonsillectomy Additional Past Surgical History / Comment(s): lt knee menisucs sx, saphenous veins reduced by radio therapy. Past Anesthesia/Blood Transfusion Reactions: No Reported Reaction Past Psychological History: No Psychological Hx Reported Smoking Status: Former smoker Past Alcohol Use History: None Reported Additional Past Alcohol Use History / Comment(s): Patient was a smoker from 1966 and quit in 1977 1 pack per day. No marijuana, street drug or alcohol use. 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 Past Drug Use History: None Reported - Past Family History Mother Family Medical History: No Reported History Additional Family Medical History / Comment(s): mom is alive-healthy at age 92 is no major medical problems. Father Family Medical History: Cancer Additional Family Medical History / Comment(s): from reanl cancer at age 69 Sister(s) Family Medical History: Blood Disorder Additional Family Medical History / Comment(s): Patient has one sister with factor V deficiency. No other family members have any deficiency, clotting, bleeding disorders he denies any diabetes or heart disease in the family. Patient does not have any children. Medications and Allergies Home Medications Medication Instructions Recorded Confirmed Type L.acidoph,Paracasei, B.lactis 1 cap PO DAILY 01/30/18 01/30/18 History [Probiotic] Multivitamins, Thera [Multivitamin 1 tab PO DAILY 01/30/18 01/30/18 History (formulary)] Omeprazole 20 mg PO DAILY PRN 01/30/18 01/30/18 History Wheat Dextrin [Benefiber] 1 pack PO DAILY 01/30/18 01/30/18 History Allergies Allergy/AdvReac Type Severity Reaction Status Date / Time amoxicillin AdvReac Abdominal Verified 01/30/18 12:25 Pain Antihistamines - Alkylamine AdvReac Unknown Verified 01/30/18 12:25 morphine AdvReac Itching Verified 01/30/18 12:25 Physical Exam Vitals: Vital Signs Temp Pulse Pulse Resp BP BP Pulse Ox 01/31/18 08:05 90 01/31/18 08:00 97 F L 86 18 106/64 95 01/31/18 07:56 88 01/31/18 04:15 18 01/31/18 04:00 97.5 F L 70 18 115/71 94 L 01/30/18 23:55 98.4 F 72 18 93/62 96 01/30/18 20:48 98 01/30/18 20:37 98 01/30/18 20:30 96 18 01/30/18 18:15 97.2 F L 96 18 118/70 96 01/30/18 17:48 97.0 F L 97 17 116/67 97 01/30/18 15:33 74 17 120/78 97 01/30/18 14:25 79 18 111/68 95 01/30/18 12:51 76 17 138/87 96 01/30/18 11:58 98.5 F 93 18 118/89 98 Intake and Output 01/30/18 01/31/18 01/31/18 22:59 06:59 14:59 Intake Total 212.026 242.824 240 Output Total 850 Balance 212.026 -607.176 240 Intake: Intake, IV Titration 212.026 242.824 Amount Heparin Sod,Pork in 0.45% 212.026 242.824 NaCl 25,000 unit In 0.45 % NaCl 1 500ml.bag @ 18 UNITS/KG/HR 34.29 mls/hr IV .[id number] [facility] Rx#: [id number] Oral 240 Output: Urine 850 Other: Voiding Method Urinal Urinal Weight 91.4 kg Gen: This is a 68-year-old male patient. He is found sitting in bed and appears to be comfortable and in no acute distress. No respiratory distress noted. HEENT: Head is atraumatic, normocephalic. Pupils equal, round. Sclerae is anicteric. Conjunctiva pink. Mucous members of the mouth are moist. NECK: Supple. No JVD. No lymphadenopathy. No thyromegaly. LUNGS: Clear to auscultation. No rhonchi or wheeze. No intercostal retractions. HEART: Regular rate and rhythm. No murmur. ABDOMEN: Soft. Bowel sounds are present. No masses. No tenderness. EXTREMITIES: No pedal edema. No calf tenderness. Dorsalis pedis +2 bilaterally. NEUROLOGICAL: Patient is awake, alert and oriented x3. Cranial nerves 2 through 12 are grossly intact. Results CBC & Chem 7: 01/31/18 02:33 01/30/18 12:10 Labs: Abnormal Lab Results - Last 24 Hours (Table) 01/30/18 01/30/18 01/30/18 Range/Units 12:10 12:10 12:10 Plt Count (150-450) k/uL Neutrophils # (1.3-7.7) k/uL Lymphocytes # (1.0-4.8) k/uL APTT (22.0-30.0) sec D-Dimer 9.08 H (<0.60) mg/L FEU Potassium 5.3 H (3.5-5.1) mmol/L Total Bilirubin 1.6 H (0.2-1.3) mg/dL ALT 16 L (21-72) U/L Total Creatine Kinase 31 L (55-170) U/L 01/30/18 01/31/18 01/31/18 Range/Units 21:24 02:33 02:33 Plt Count 140 L (150-450) k/uL Neutrophils # 7.9 H (1.3-7.7) k/uL Lymphocytes # 0.8 L (1.0-4.8) k/uL APTT 87.3 H 76.5 H (22.0-30.0) sec D-Dimer (<0.60) mg/L FEU Potassium (3.5-5.1) mmol/L Total Bilirubin (0.2-1.3) mg/dL ALT (21-72) U/L Total Creatine Kinase (55-170) U/L Thrombosis Risk Factor Assmnt - DVT/VTE Prophylaxis DVT/VTE Prophylaxis: Pharmacologic Prophylaxis ordered - Choose All That Apply Any of the Below Risk Factors Present?: Yes Each Factor Represents 1 point: Obesity (BMI >25), Varicose veins Each Risk Factor Represents 2 Points: Age 61-74 years, Malignancy Each Risk Factor Represents 3 Points: History of DVT/PE Other congenital or acquired thrombophilia - If yes, enter type in comment: No Thrombosis Risk Factor Assessment Total Risk Factor Score: 9 Thrombosis Risk Factor Assessment Level: High Risk Assessment and Plan Plan: 1. Acute bilateral pulmonary embolism in a patient with history of DVT 15 years ago. No lower extremity DVT on ultrasound. Patient has been admitted to the selective care unit. Consults in place with cardiology and pulmonary medicine. Patient is on heparin drip which will be continued and plan for oral agent tomorrow. Patient has had significant travel in the past 6 weeks by making 3 flights back and forth to [place] during that time. Echocardiogram has been obtained and report is pending. 2. Acute left-sided chest pain, resolved. Troponins are negative. Cardiology consult appreciated. 3. Gastroesophageal reflux disease and GI prophylaxis. Protonix. 4. Upper respiratory infection with bronchospasm. Patient is currently on Solu -Medrol IV and followed by Dr. Mayorga. 5. DVT prophylaxis. Heparin drip. Patient will be admitted to the hospital for a minimum of 2 night stay. Discharge plan: Return home Impression and plan of care have been directed as dictated by the signing physician. Bibi Stevenson nurse practitioner acting as scribe for signing physician.
[2018-01-31 15:26] VITALS: BMI 26.6
--- NOTE | 2018-01-31 15:48 | P.PN ---
Subjective Progress Note Date: 01/31/18 A pleasant 68-year-old male patient who presented to the emergency department because of an acute left-sided chest pain that was some what pleuritic in nature that started around 10 AM this morning and the patient was quite concerning for that reason he presented to hospital where he was found to have an elevated d-dimer and subsequently CT angios the chest showed bilateral pulmonary embolism more so on the right with early strain pattern involving the right ventricle. Troponins were negative. The patient was started on IV heparin and patient was admitted to the floor. Note that the patient was having symptoms of URI approximately 10 days ago. He had seen his primary care physician and he was given a course of Z-Ovi. His cough and congestion wheezing was subsiding. He is not known to have any previous history of lung disease or disorder. No history of bronchial asthma or emphysema. No previous history of pulmonary embolism. 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 He refers to smoking history that was very limited for only 10 years at the young age. 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 He admits that he has become sedentary after his recent URI and he was staying at home and not doing all other activity or walking. No history of malignancy. No history of any recent orthopedic surgeries. Has had previous back surgery back in 1999 and 2001 and the surgeries were essentially uncomplicated. Currently is hemodynamically stable. He is afebrile. He is on 2 L of oxygen nasal cannula with a pulse ox of 96% and no swelling lower extremities. No calf pain or tenderness. Remains on IV heparin. On 01/31/2018 I'm seeing this patient for a follow-up. The patient is looking much improved in terms of his breathing since yesterday. He is less short of breath. Remains on IV heparin. Doppler of lower extremities has been negative. Echocardiogram was done and there is also still pending for now. No hemoptysis no pleurisy. He is off oxygen is currently on room air. He remains hemodynamic is stable. No other significant events over the past 24 hours. Objective - Vital Signs Vital signs: Vital Signs Temp 96.8 F L 01/31/18 11:46 Pulse 86 01/31/18 15:30 Resp 18 01/31/18 11:46 BP 107/68 01/31/18 11:46 Pulse Ox 96 01/31/18 15:18 Intake & Output 01/30/18 01/31/18 01/31/18 18:59 06:59 18:59 Intake Total 454.850 600 Output Total 850 Balance -395.150 600 Weight 95.254 kg 91.4 kg 91.4 kg Intake: Intake, IV Titration 454.850 Amount Heparin Sod,Pork in 0.45% 454.850 NaCl 25,000 unit In 0.45 % NaCl 1 500ml.bag @ 18 UNITS/KG/HR 34.29 mls/hr IV .[id number] [facility] Rx#: [id number] Oral 600 Output: Urine 850 Other: Voiding Method Urinal Urinal # Voids 2 # Bowel Movements 0 - Exam The patient appeared well nourished and normally developed. Vital signs as documented. Head exam is unremarkable. No scleral icterus or corneal arcus noted. Neck is without jugular venous distension, thyromegaly, or carotid bruits. Carotid upstrokes are brisk bilaterally. Lungs are clear to auscultation and there is some prolongation of the expiratory phase of breathing and scattered expiratory wheezes throughout the lung alonzo bilaterally. Cardiac exam reveals the PMI to be normally sized and situated. Rhythm is regular. First and second heart sounds normal. No murmurs, rubs or gallops. Abdominal exam reveals normal bowel sounds, no masses, no organomegaly and no aortic enlargement. Extremities are nonedematous and both femoral and pedal pulses are normal. Neurologically the patient is awake and alert and the patient has no focal neurological deficit.Examination of the skin revealed no evidence of significant rashes, suspicious appearing nevi or other concerning lesions. Psychiatric to the patient is appropriate mood and affect - Labs CBC & Chem 7: 01/31/18 02:33 01/30/18 12:10 Labs: Abnormal Lab Results - Last 24 Hours (Table) 01/30/18 01/31/18 01/31/18 Range/Units 21:24 02:33 02:33 Plt Count 140 L (150-450) k/uL Neutrophils # 7.9 H (1.3-7.7) k/uL Lymphocytes # 0.8 L (1.0-4.8) k/uL APTT 87.3 H 76.5 H (22.0-30.0) sec Assessment and Plan Plan: Assessment 1 acute pulmonary embolism, bilateral, more so on the right involving the right upper lobe middle lobe and right lower lobe pulmonary artery branches and to lesser extent involving the left lower lobe and left main pulmonary artery branches. This is an unprovoked event. The patient had a recent URI with symptoms of bronchitis and he states that he has been essentially sedentary. Otherwise no other identifiable risk factors. He has had a previous history of DVT more than 15 years ago. 2 acute pleuritic left-sided chest pain secondary to above 3 acute bronchitis treated on outpatient basis with a course of Z-Ovi. The patient remains bronchospastic and wheezy. No evidence of any pneumonia 4 remote history of DVT of the left lower extremity Plan The Doppler of the lower extremities negative. Awaiting echocardiogram to assess the patient's LV function and any signs of strain pattern. We'll subject this patient long-term anticoagulation with an oral agent. Recommend Eliquis. We'll taper the steroids. Continue the bronchodilators. Increase level of activity as tolerated. Possible discharge home with the next 24 hours. We'll continue to follow.
--- NOTE | 2018-01-31 20:55 | ECHOF ---
Referral Reason:PE MEASUREMENTS -------- HEIGHT: 180.3 cm WEIGHT: 91.2 kg BP: 115/71 RVIDd: 3.3 cm (< 3.3) IVSd: 1.0 cm (0.6 - 1.1) LVIDd: 2.4 cm (3.9 - 5.3) LVPWd: 0.9 cm (0.6 - 1.1) EDV(Teich): 20 ml IVSs: 0.9 cm LVIDs: 1.7 cm LVPWs: 0.8 cm %IVS Thck: -12 % ESV(Teich): 8 ml EF(Teich): 59 % %FS: 29 % SV(Teich): 12 ml Ao Diam: 3.6 cm (2.0 - 3.7) AV Cusp: 2.4 cm (1.5 - 2.6) LA Diam: 3.7 cm (2.7 - 3.8) MV EXCURSION: 8.677 mm (> 18.000) MV EF SLOPE: 66 mm/s (70 - 150) EPSS: 1.2 cm MV E Vic: 1.00 m/s MV DecT: 185 ms MV Dec Ceiba: 5.4 m/s MV A Vic: 1.01 m/s MV E/A Ratio: 0.99 MV PHT: 54 ms E/E': 8.30 E': 0.12 m/s MR Vmax: 1.55 m/s MR maxP.63 mmHg AV Vmax: 1.51 m/s AV maxP.10 mmHg AR Vmax: 1.75 m/s AR maxP.29 mmHg AR PHT: 512 ms AR Dec Time: 1765 ms AR Dec Ceiba: 1.0 m/s TR Vmax: 1.18 m/s TR maxP.57 mmHg RAP: 5.00 mmHg RVSP: 10.57 mmHg FINDINGS -------- Sinus rhythm. This was a technically adequate study. The left ventricular size is normal. Left ventricular wall thickness is normal. Overall left vent ricular systolic function is normal with, an EF between 55 - 60 %. The right ventricle is mildly enlarged. The left atrium is normal in size. The right atrium is normal in size. Trace amount of aortic regurgitation. The mitral valve leaflets are mildly thickened. There is trace mitral regurgitation. Trace tricuspid regurgitation present. The right ventricular systolic pressure, as measured by Dopp ler, is 10.57mmHg. Pulmonic valve appears structurally normal. The aortic root size is normal. The pericardium is normal. CONCLUSIONS -------- 1. Sinus rhythm. 2. This was a technically adequate study. 3. The left ventricular size is normal. 4. Left ventricular wall thickness is normal. 5. Overall left ventricular systolic function is normal with, an EF between 55 - 60 %. 6. The left atrium is normal in size. 7. The right atrium is normal in size. 8. Trace amount of aortic regurgitation. 9. The mitral valve leaflets are mildly thickened. 10. There is trace mitral regurgitation. 11. Trace tricuspid regurgitation present. 12. The right ventricular systolic pressure, as measured by Doppler, is 10.57mmHg. 13. Pulmonic valve appears structurally normal. 14. The aortic root size is normal. 15. The pericardium is normal. UTILITY TELLER: Britta Dent RDCS
[2018-02-01 04:41] VITALS: RESP 16
[2018-02-01] MEDS: methylPREDNISolone SOD SUCCI 40 MG/ML 1 ML VIAL IV SCH (05:33)
[2018-02-01] MEDS: IPRATROPIUM-ALBUTEROL 3 ML NEB INHALATION SCH ×2 (07:44→11:16)
[2018-02-01 07:48] LABS: Basophils % (A) 0 %; Eosinophils % (A) 0 %; HCT 37.5 % (39.0-53.0); HGB 13.1 gm/dL (13.0-17.5); Lymphocytes # (A) 0.7 k/uL (1.0-4.8); Lymphocytes % (A) 6 %; MCH 32.4 pg (25.0-35.0); MCV 92.5 fL (80.0-100.0); Monocytes # (A) 0.4 k/uL (0-1.0); Monocytes % (A) 4 %; Neutrophils # (A) 11.3 k/uL (1.3-7.7); Neutrophils % (A) 90 %; Platelet Count 161 k/uL (150-450); RBC 4.06 m/uL (4.30-5.90); RDW 12.5 % (11.5-15.5); WBC 12.6 k/uL (3.8-10.6)
[2018-02-01] MEDS: LACTOBACILLUS ACIDOPH & BULGAR 1 EACH PACKET PO SCH (08:05)
[2018-02-01] MEDS: HEPARIN SOD,PORK IN 0.45% NACL 25,000 UNIT in 0.45% NACL 1 500ML.BAG IV SCH (08:18)
[2018-02-01 08:28] VITALS: BP 105/59; TEMP 96.9
[2018-02-01] MEDS ORDERED: RIVAROXABAN 15 MG TAB PO SCH (09:15)
[2018-02-01 11:30] VITALS: PULSE 80
--- NOTE | 2018-02-01 13:21 | P.DS ---
<Bibi Stevenson A - Last Filed: 02/01/18 13:18> Providers Date of admission: 01/30/18 15:39 Expected date of discharge: 02/01/18 Attending physician: Maeve Leary MD Consults: 01/30/18 15:38 Consult Physician Stat Consulting Provider: Taylor Ingram Consult Reason/Comments: Chest pain, pulmonary embolism, right heart strain Do you want consulting provider notified?: Yes 01/30/18 15:53 Consult Physician Stat Consulting Provider: Candelaria Mayorga Consult Reason/Comments: PE with straiing on the right heart Do you want consulting provider notified?: Yes Primary care physician: [facility] Course: This is a 68-year-old male patient of Dr. Amaya with past medical history for gastroesophageal reflux disease, hemorrhoids, DVT in the left lower extremity more than 15 years ago. Patient states that he has had a cold symptoms 2 weeks ago and yesterday he woke up with chest pain. He gives history that he has flown back and forth to [place] 3 times in the past 6 weeks. He denies any lower extremity pain. He also has a sister that has a factor V deficiency and no other family members have problems with DVT or pulmonary embolism. Patient came into [facility] emergency center for evaluation and was found to have an elevated d-dimer and underwent a CAT scan angiogram of the chest that showed bilateral pulmonary embolism more so on the right with early strain pattern involving the right ventricle. Troponins were negative. Patient was started on IV heparin and admitted to the selective care unit and he has been seen in consultation by pulmonary medicine and cardiology. Patient denies any significant chest pain at this time. He states he feels tired and did not get a lot of sleep. He subsequently undergone Doppler of the lower extremities that was negative bilaterally. 02/01: Echocardiogram reveals EF of 55-60%, trace aortic regurgitation, trace mitral regurgitation, trace tricuspid regurgitation. Patient states his shortness of breath is less today. He states he has heavy breathing mostly after activity when he sits down and relaxes or after nebulizer treatment. He states he is having less frequent coughing spells. Cardiology had provided a prescription for Xarelto yesterday and patient has attended our co-pay per month. Patient will be transitioned over to Xarelto on heparin drip will be discontinued and patient will be discharged home today in stable condition. No need for home oxygen. Patient is concerned because he has had exposure to black mold in fiberglass insulation in the past. Patient would benefit from outpatient workup for coagulopathy. Discharge diagnoses: 1. Acute bilateral pulmonary embolism in a patient with history of DVT 15 years ago. No lower extremity DVT on ultrasound. Patient has been admitted to the selective care unit. Consults in place with cardiology and pulmonary medicine. Patient is on heparin drip which will be continued and plan for oral agent tomorrow. Patient has had significant travel in the past 6 weeks by making 3 flights back and forth to [place] during that time. 2. Acute left-sided chest pain, resolved. 3. Gastroesophageal reflux disease 4. Upper respiratory infection with bronchospasm. Discharge plan: Return home Impression and plan of care have been directed as dictated by the signing physician. Bibi Stevenson nurse practitioner acting as scribe for signing physician. Patient Condition at Discharge: Good Plan - Discharge Summary Discharge Rx Participant: No New Discharge Prescriptions: New Ipratropium-Albuterol Nebulize [Duoneb 0.5 mg-3 mg/3 ml Soln] 3 ml INHALATION RT-QID #120 ampul.neb predniSONE 40 mg PO DAILY #10 tab Rivaroxaban [Xarelto] 15 mg PO BID-W/MEALS tab Continue Wheat Dextrin [Benefiber] 1 pack PO DAILY Multivitamins, Thera [Multivitamin (formulary)] 1 tab PO DAILY L.acidoph,Paracasei, B.lactis [Probiotic] 1 cap PO DAILY Omeprazole 20 mg PO DAILY PRN PRN Reason: GERD Discharge Medication List L.acidoph,Paracasei, B.lactis [Probiotic] 1 cap PO DAILY 01/30/18 [History] Multivitamins, Thera [Multivitamin (formulary)] 1 tab PO DAILY 01/30/18 [History ] Omeprazole 20 mg PO DAILY PRN 01/30/18 [History] Wheat Dextrin [Benefiber] 1 pack PO DAILY 01/30/18 [History] Ipratropium-Albuterol Nebulize [Duoneb 0.5 mg-3 mg/3 ml Soln] 3 ml INHALATION RT -QID #120 ampul.neb 02/01/18 [Rx] Rivaroxaban [Xarelto] 15 mg PO BID-W/MEALS tab 02/01/18 [Rx] predniSONE 40 mg PO DAILY #10 tab 02/01/18 [Rx] Follow up Appointment(s)/Referral(s): Wayne Amaya MD [Primary Care Provider] - 02/05/18 10:00 am Sukhwinder Lopez MD [STAFF PHYSICIAN] - 02/15/18 4:15 pm Candelaria Mayorga MD [STAFF PHYSICIAN] - 02/15/18 1:45 pm Patient Instructions/Handouts: Pulmonary Embolism (DC), Acute Bronchitis (GEN) , Safe Use of Anticoagulants (DC) Activity/Diet/Wound Care/Special Instructions: Free month of Xarelto in [facility] $10 copay card given to patient as well, next months refill transferred to [facility]. Discharge Disposition: HOME SELF-CARE <Maeve Leary - Last Filed: 02/01/18 19:56> Hospital Course: Unprovoked Pulmonary embolism
--- NOTE | 2018-02-01 14:36 | P.PN ---
Subjective Progress Note Date: 02/01/18 Principal diagnosis: PE This is a 68-year-old gentleman with history of a DVT in the left lower extremity over 15 years ago, GERD, who presented to the hospital with symptoms of chest discomfort with associated difficulty in breathing. Patient had recently flown back and forth to [place] on 3 different occasions. Patient also has a sister with factor V deficiency. He ruled in here for pulmonary embolism, was initially on high-dose heparin and changed over to Xarelto. Patient was seen and examined this morning he states he ambulated this morning and was mildly short of breath however significantly improved from his admission here. Blood pressure 106/60 with a heart rate in the 80s. White blood cell count 12.6, hemoglobin 13.1, platelet count 161. Echocardiogram with Doppler study was performed which revealed an ejection fraction of 55-60%. RVSP normal Objective - Vital Signs Vital signs: Vital Signs Temp 96.9 F L 02/01/18 08:00 Pulse 80 02/01/18 11:30 Resp 16 02/01/18 08:00 BP 105/59 02/01/18 08:00 Pulse Ox 97 02/01/18 08:00 Intake & Output 01/31/18 02/01/18 02/01/18 18:59 06:59 18:59 Intake Total 840 728.696 546.324 Output Total 750 Balance 840 -21.304 546.324 Weight 91.4 kg 91.4 kg Intake: Intake, IV Titration 488.696 306.324 Amount Heparin Sod,Pork in 0.45% 488.696 306.324 NaCl 25,000 unit In 0.45 % NaCl 1 500ml.bag @ 18 UNITS/KG/HR 34.29 mls/hr IV .[id number] [facility] Rx#: [id number] Oral 840 240 240 Output: Urine 750 Other: Voiding Method Urinal Urinal Urinal # Voids 2 2 # Bowel Movements 0 - Exam PHYSICAL EXAMINATION: HEENT: Head is atraumatic, normocephalic. Pupils equal, round. Neck is supple. There is no elevated jugular venous pressure. HEART EXAMINATION: Heart S1, S2 normal. No murmur or gallop heard. CHEST EXAMINATION: Lungs are clear to auscultation and precussion. No chest wall tenderness is noted on palpation or with deep breathing. ABDOMEN: Soft, nontender. Bowel sounds are heard. No organomegaly noted. EXTREMITIES: 2+ peripheral pulses with no evidence of peripheral edema and no calf tenderness noted. NEUROLOGIC patient is awake, alert and oriented -3. . - Labs CBC & Chem 7: 02/01/18 07:08 01/30/18 12:10 Labs: Abnormal Lab Results - Last 24 Hours (Table) 02/01/18 02/01/18 Range/Units 07:08 07:08 WBC 12.6 H (3.8-10.6) k/uL RBC 4.06 L (4.30-5.90) m/uL Hct 37.5 L (39.0-53.0) % Neutrophils # 11.3 H (1.3-7.7) k/uL Lymphocytes # 0.7 L (1.0-4.8) k/uL APTT 67.2 H (22.0-30.0) sec Assessment and Plan Plan: Assessment and plan #1 acute bilateral pulmonary embolism #2 history of DVT #3 GERD Plan From cardiology's perspective, we will just recommend to continue on dose of Xarelto per PE protocol. Discharge home with stable. DNP note has been reviewed, I agree with a documented findings and plan of care. Patient was seen and examined.
== END 2018-02-01 12:00 | disposition home or self-care (01) | DRG 176 ==
LOC: EC 11:56 → 6SEL 15:39
PROVIDERS: ADMIT Internal Medicine; ATTEND Internal Medicine
DX: I26.99 Other pulmonary embolism without acute cor pulmonale (principal); I08.3 Combined rheumatic disorders of mitral, aortic and tricuspid valves; K21.9 Gastro-esophageal reflux disease without esophagitis; J20.9 Acute bronchitis, unspecified; R79.1 Abnormal coagulation profile; R01.1 Cardiac murmur, unspecified; Z86.718 Personal history of other venous thrombosis and embolism; Z88.6 Allergy status to analgesic agent; Z88.1 Allergy status to other antibiotic agents; Z88.8 Allergy status to other drugs, medicaments and biological substances; Z79.899 Other long term (current) drug therapy; Z83.2 Family history of diseases of the blood and blood-forming organs and certain disorders involving the immune mechanism; Z80.51 Family history of malignant neoplasm of kidney; Z87.891 Personal history of nicotine dependence; Z90.89 Acquired absence of other organs; Z87.19 Personal history of other diseases of the digestive system
CPT/HCPCS: 36415; 71046; 71275; 80053; 82550; 82553; 83735; 84484; 85025; 85379; 85610; 85730; 93005; 93306; 93970; 94640; 94760; 96361; 96365; 96366; 96375; 96376; 99291

== ENCOUNTER → 2018-02-08 | Outpatient (CLI) | payer BC ==
--- NOTE | 2018-02-08 15:09 | US ---
EXAMINATION TYPE: US abdomen comp/pelvis limited DATE OF EXAM: 02/08/2018 COMPARISON: NONE CLINICAL HISTORY: 68-year-old male R33.9 urine retention unspecified. Technique: Multiple sonographic images of the abdomen and bladder are obtained. FINDINGS: Liver Length: 12.4 cm Gallbladder Wall: 0.3 cm CBD: 0.4 cm Spleen: 10.4 cm Right Kidney: 9.7 x 4.8 x 5.7 cm Left Kidney: 11.5 x 4.9 x 4.5 cm Post void residual: 98.2 ml Pancreas: not well visualized due to midline bowel gas Liver: Normal homogeneous echotexture without focal lesion. Gallbladder: small echogenic focus appears fixed to the anterior wall measuring 6 mm. No abnormal ga llbladder distention, wall thickening, or pericholecystic fluid. CBD: wnl Spleen: wnl Right Kidney: No hydronephrosis. Left Kidney: No hydronephrosis. Upper IVC: wnl Abd Aorta: Within normal limits. However, the common iliac arteries are measured mildly ectatic at 1 .6 cm each. Bladder: Partially distended bladder shows no gross abnormality. Bilateral Jets Seen No Post void residual: 98.2 ml IMPRESSION: 1. A 6 mm mural-based echogenic focus along the anterior gallbladder wall. This could represent an ad herent calculus or gallbladder wall polyp. The latter is somewhat favored. Six-month follow-up gallbl adder ultrasound recommended. 2. No hydronephrosis. 3. Neither ureteral jet was seen during the course of the exam. Correlate for possible underlying chr onic kidney disease. 4. Postvoid bladder volume of 98 ml compatible with urinary retention.
== END | disposition home or self-care (01) ==
LOC: RADUSWWP 08:40
PROVIDERS: ATTEND Internal Medicine Geriatric Medicine
DX: R33.9 Retention of urine, unspecified (principal); R93.41 Abnormal radiologic findings on diagnostic imaging of renal pelvis, ureter, or bladder
CPT/HCPCS: 76700; 76857

== ENCOUNTER 2018-02-12 18:30 | Emergency (ER) | payer BC ==
[2018-02-12 19:05] VITALS: RESP 18
[2018-02-12] MEDS ORDERED: ACETAMINOPHEN TAB 500 MG TAB PO STA (20:12)
[2018-02-12 20:55] LABS: Basophils % (A) 0 %; Eosinophils # (A) 0.1 k/uL (0-0.7); Eosinophils % (A) 0 %; HCT 44.6 % (39.0-53.0); HGB 15.3 gm/dL (13.0-17.5); Lymphocytes # (A) 1.3 k/uL (1.0-4.8); Lymphocytes % (A) 10 %; MCH 32.2 pg (25.0-35.0); MCHC 34.4 g/dL (31.0-37.0); MCV 93.7 fL (80.0-100.0); Mean Platelet Volume 7.9; Monocytes # (A) 0.7 k/uL (0-1.0); Monocytes % (A) 5 %; Neutrophils # (A) 11.5 k/uL (1.3-7.7); Neutrophils % (A) 84 %; Platelet Count 203 k/uL (150-450); RBC 4.76 m/uL (4.30-5.90); RDW 12.4 % (11.5-15.5); WBC 13.8 k/uL (3.8-10.6)
[2018-02-12 21:09] LABS: Creatine Kinase 30 U/L (55-170)
[2018-02-12 21:11] LABS: ALT 37 U/L (21-72); AST 22 U/L (17-59); Albumin 4.2 g/dL (3.5-5.0); Alkaline Phosphatase 79 U/L (38-126); Amylase 47 U/L (30-110); Anion Gap 13 mmol/L; Blood Urea Nitrogen 11 mg/dL (9-20); Calcium 9.5 mg/dL (8.4-10.2); Carbon Dioxide 24 mmol/L (22-30); Chloride 97 mmol/L (98-107); Glucose 101 mg/dL (74-99); Lipase 73 U/L (23-300); Magnesium 2.2 mg/dL (1.6-2.3); Potassium 4.2 mmol/L (3.5-5.1); Sodium 134 mmol/L (137-145); Total Protein 7.3 g/dL (6.3-8.2)
--- NOTE | 2018-02-12 21:14 | CT ---
EXAMINATION TYPE: CT brain wo con DATE OF EXAM: 02/12/2018 COMPARISON: NONE HISTORY: Headache. CT DLP: 1147 mGycm Automated exposure control for dose reduction was used. FINDINGS: There is some cerebral cortical atrophy. There is no mass effect nor midline shift. There is no sign of intracranial hemorrhage. The calvarium is intact. IMPRESSION: CEREBRAL ATROPHY. NO ACUTE INTRACRANIAL ABNORMALITY.
[2018-02-12 21:21] LABS: Creatine Kinase MB 0.2 ng/mL (0.0-2.4); Troponin I <0.012 ng/mL (0.000-0.034)
[2018-02-12 21:22] VITALS: TEMP 98.2
--- NOTE | 2018-02-12 21:27 | CT ---
EXAMINATION TYPE: CT abdomen pelvis wo con DATE OF EXAM: 02/12/2018 COMPARISON: NONE HISTORY: Nausea. CT DLP: 860. mGycm Automated exposure control for dose reduction was used. TECHNIQUE: Helical acquisition of images was performed from the lung bases through the pelvis. FINDINGS: Lung bases are clear. There is no pleural effusion. Heart size is normal. There is no pericardial eff usion. Liver spleen pancreas gallbladder appear within normal limits. There is a 4 mm calcification at the t ail of the pancreas. There is no adrenal mass. Kidneys have normal size and contour. There is no hydronephrosis. There is no retroperitoneal adenopathy. There is no ascites. There are multiple diverticula in the sigmoid col on. I see no intestinal wall thickening. There are no dilated loops. There is umbilical hernia that c ontains omental fat. There is mild prostatic calcification. Bladder distends smoothly. There is no ev idence of a pelvic mass. I see no bony destructive process. IMPRESSION: THERE IS SIGMOID DIVERTICULOSIS WITHOUT DIVERTICULITIS. UMBILICAL HERNIA. NO SIGN OF ACUTE ABDOMEN AN D PELVIS.
[2018-02-12 21:39] LABS: Appearance,Urine Clear (Clear); Bilirubin,Urine Negative (Negative); Blood,Urine Negative (Negative); Color,Urine Yellow; Glucose,Urine (UA) Negative (Negative); Ketones,Urine Negative (Negative); Leukocyte Esterase,Urine Negative (Negative); Nitrite,Urine Negative (Negative); PH, Urine 6.5 (5.0-8.0); Protein,Urine Negative (Negative); Specific Gravity,Urine 1.007 (1.001-1.035); Urobilinogen,Urine <2.0 mg/dL (<2.0)
--- NOTE | 2018-02-12 21:41 | ED ---
Headache HPI - General Chief Complaint: Headache Stated Complaint: headache/nausea Time Seen by Provider: 02/12/18 19:46 Source: patient, RN notes reviewed Mode of arrival: ambulatory Limitations: no limitations - History of Present Illness Initial Comments: This is a 68-year-old male with past several weeks on and off. It has been at the top of his head he states that today started being behind the eyes. Throbbing in nature moderate [id number] in severity. No associated fevers chills nausea vomiting sweats he also states she's been having some indigestion lately where he just cannot seem to digest his food that he is on omeprazole. No chest pain no shortness of breath or other symptoms or mitigating factors at this time. He did complain some right flank pain. The possibility was broached of a kidney stone. MD Complaint: headache, other - Related Data Home Medications Medication Instructions Recorded Confirmed L.acidoph,Paracasei, B.lactis 1 cap PO DAILY 01/30/18 02/12/18 [Probiotic] Multivitamins, Thera [Multivitamin 1 tab PO DAILY 01/30/18 02/12/18 (formulary)] Omeprazole 20 mg PO DAILY PRN 01/30/18 02/12/18 Wheat Dextrin [Benefiber] 1 pack PO DAILY 01/30/18 02/12/18 Ketoconazole 2% Shampoo [Nizoral] 1 applic TOPICAL DAILY PRN 02/12/18 02/12/18 Previous Rx's Medication Instructions Recorded Rivaroxaban [Xarelto] 15 mg PO BID-W/MEALS tab 02/01/18 Metoclopramide [Reglan] 10 mg PO ACHS #20 tab 02/12/18 Allergies Allergy/AdvReac Type Severity Reaction Status Date / Time amoxicillin AdvReac Abdominal Verified 02/12/18 19:37 Pain Antihistamines - Alkylamine AdvReac Unknown Verified 02/12/18 19:37 morphine AdvReac Itching Verified 02/12/18 19:37 Review of Systems ROS Statement: Those systems with pertinent positive or pertinent negative responses have been documented in the HPI. ROS Other: All systems not noted in ROS Statement are negative. Past Medical History Past Medical History: GERD/Reflux, Pulmonary Embolus (PE) Additional Past Medical History / Comment(s): DVT more than 15 years ago, hemorrhoids pe History of Any Multi-Drug Resistant Organisms: None Reported Past Surgical History: Appendectomy, Back Surgery, Orthopedic Surgery, Tonsillectomy Additional Past Surgical History / Comment(s): lt knee menisucs sx, saphenous veins reduced by radio therapy. Past Anesthesia/Blood Transfusion Reactions: No Reported Reaction Past Psychological History: No Psychological Hx Reported Smoking Status: Former smoker Past Alcohol Use History: None Reported Past Drug Use History: None Reported - Past Family History Mother Family Medical History: No Reported History Additional Family Medical History / Comment(s): mom is alive-healthy at age 92 is no major medical problems. Father Family Medical History: Cancer Additional Family Medical History / Comment(s): from reanl cancer at age 69 Sister(s) Family Medical History: Blood Disorder Additional Family Medical History / Comment(s): Patient has one sister with factor V deficiency. No other family members have any deficiency, clotting, bleeding disorders he denies any diabetes or heart disease in the family. Patient does not have any children. General Exam - General Exam Comments Initial Comments: This is a well-developed well-nourished awake alert oriented times 3 male Limitations: no limitations General appearance: alert, in no apparent distress Head exam: Present: atraumatic, normocephalic, normal inspection Eye exam: Present: normal appearance, PERRL, EOMI. Absent: scleral icterus, conjunctival injection, periorbital swelling ENT exam: Present: normal exam, mucous membranes moist Neck exam: Present: normal inspection. Absent: tenderness, meningismus, lymphadenopathy Respiratory exam: Present: normal lung sounds bilaterally. Absent: respiratory distress, wheezes, rales, rhonchi, stridor Cardiovascular Exam: Present: regular rate, normal rhythm, normal heart sounds. Absent: systolic murmur, diastolic murmur, rubs, gallop, clicks GI/Abdominal exam: Present: soft, normal bowel sounds. Absent: distended, tenderness, guarding, rebound, rigid Extremities exam: Present: normal inspection, full ROM, normal capillary refill. Absent: tenderness, pedal edema, joint swelling, calf tenderness Back exam: Present: normal inspection Neurological exam: Present: alert, oriented X3, CN II-XII intact Psychiatric exam: Present: normal affect, normal mood Skin exam: Present: warm, dry, intact, normal color. Absent: rash Course Vital Signs 02/12/18 02/12/18 02/12/18 19:00 20:27 21:21 Temperature 98.7 F 98.2 F Pulse Rate 75 100 73 Respiratory 18 18 18 Rate Blood Pressure 132/79 135/75 147/88 O2 Sat by Pulse 98 98 96 Oximetry Medical Decision Making - Medical Decision Making I did discuss findings with the patient's headache is improving. He will be discharged with follow-up with his doctor. He will be placed on a short course of Reglan. - Lab Data Result diagrams: 02/12/18 20:20 02/12/18 20:20 Lab Results 02/12/18 02/12/18 02/12/18 Range/Units 20:20 20:20 20:20 WBC 13.8 H (3.8-10.6) k/uL RBC 4.76 (4.30-5.90) m/uL Hgb 15.3 (13.0-17.5) gm/dL Hct 44.6 (39.0-53.0) % MCV 93.7 (80.0-100.0) fL MCH 32.2 (25.0-35.0) pg MCHC 34.4 (31.0-37.0) g/dL RDW 12.4 (11.5-15.5) % Plt Count 203 (150-450) k/uL Neutrophils % 84 % Lymphocytes % 10 % Monocytes % 5 % Eosinophils % 0 % Basophils % 0 % Neutrophils # 11.5 H (1.3-7.7) k/uL Lymphocytes # 1.3 (1.0-4.8) k/uL Monocytes # 0.7 (0-1.0) k/uL Eosinophils # 0.1 (0-0.7) k/uL Basophils # 0.0 (0-0.2) k/uL Sodium 134 L (137-145) mmol/L Potassium 4.2 (3.5-5.1) mmol/L Chloride 97 L (98-107) mmol/L Carbon Dioxide 24 (22-30) mmol/L Anion Gap 13 mmol/L BUN 11 (9-20) mg/dL Creatinine 1.00 (0.66-1.25) mg/dL Est GFR (CKD-EPI)AfAm >90 (>60 ml/min/1.73 sqM) Est GFR (CKD-EPI)NonAf 78 (>60 ml/min/1.73 sqM) Glucose 101 H (74-99) mg/dL Calcium 9.5 (8.4-10.2) mg/dL Magnesium 2.2 (1.6-2.3) mg/dL Total Bilirubin 1.0 (0.2-1.3) mg/dL AST 22 (17-59) U/L ALT 37 (21-72) U/L Alkaline Phosphatase 79 (38-126) U/L Total Creatine Kinase 30 L (55-170) U/L CK-MB (CK-2) 0.2 (0.0-2.4) ng/mL CK-MB (CK-2) Rel Index 0.7 Troponin I <0.012 (0.000-0.034) ng/mL Total Protein 7.3 (6.3-8.2) g/dL Albumin 4.2 (3.5-5.0) g/dL Amylase 47 (30-110) U/L Lipase 73 (23-300) U/L Urine Color Urine Appearance (Clear) Urine pH (5.0-8.0) Ur Specific [place] (1.001-1.035) Urine Protein (Negative) Urine Glucose (UA) (Negative) Urine Ketones (Negative) Urine Blood (Negative) Urine Nitrite (Negative) Urine Bilirubin (Negative) Urine Urobilinogen (<2.0) mg/dL Ur Leukocyte Esterase (Negative) 02/12/18 Range/Units 21:15 WBC (3.8-10.6) k/uL RBC (4.30-5.90) m/uL Hgb (13.0-17.5) gm/dL Hct (39.0-53.0) % MCV (80.0-100.0) fL MCH (25.0-35.0) pg MCHC (31.0-37.0) g/dL RDW (11.5-15.5) % Plt Count (150-450) k/uL Neutrophils % % Lymphocytes % % Monocytes % % Eosinophils % % Basophils % % Neutrophils # (1.3-7.7) k/uL Lymphocytes # (1.0-4.8) k/uL Monocytes # (0-1.0) k/uL Eosinophils # (0-0.7) k/uL Basophils # (0-0.2) k/uL Sodium (137-145) mmol/L Potassium (3.5-5.1) mmol/L Chloride (98-107) mmol/L Carbon Dioxide (22-30) mmol/L Anion Gap mmol/L BUN (9-20) mg/dL Creatinine (0.66-1.25) mg/dL Est GFR (CKD-EPI)AfAm (>60 ml/min/1.73 sqM) Est GFR (CKD-EPI)NonAf (>60 ml/min/1.73 sqM) Glucose (74-99) mg/dL Calcium (8.4-10.2) mg/dL Magnesium (1.6-2.3) mg/dL Total Bilirubin (0.2-1.3) mg/dL AST (17-59) U/L ALT (21-72) U/L Alkaline Phosphatase (38-126) U/L Total Creatine Kinase (55-170) U/L CK-MB (CK-2) (0.0-2.4) ng/mL CK-MB (CK-2) Rel Index Troponin I (0.000-0.034) ng/mL Total Protein (6.3-8.2) g/dL Albumin (3.5-5.0) g/dL Amylase (30-110) U/L Lipase (23-300) U/L Urine Color Yellow Urine Appearance Clear (Clear) Urine pH 6.5 (5.0-8.0) Ur Specific [place] 1.007 (1.001-1.035) Urine Protein Negative (Negative) Urine Glucose (UA) Negative (Negative) Urine Ketones Negative (Negative) Urine Blood Negative (Negative) Urine Nitrite Negative (Negative) Urine Bilirubin Negative (Negative) Urine Urobilinogen <2.0 (<2.0) mg/dL Ur Leukocyte Esterase Negative (Negative) - Radiology Data Radiology results: report reviewed (I did review the imaging and report no acute findings), image reviewed Disposition Clinical Impression: Headache, Dyspepsia Disposition: HOME SELF-CARE Condition: Good Instructions: Acute Headache (ED), Indigestion (ED) Prescriptions: Metoclopramide [Reglan] 10 mg PO ACHS #20 tab Referrals: Wayne Amaya MD [Primary Care Provider] - 1-2 days
[2018-02-12 21:56] VITALS: BP 148/87; PULSE 74
== END 2018-02-12 21:56 | disposition home or self-care (01) ==
LOC: EC 18:30
DX: R51 Headache (principal); R10.13 Epigastric pain; Z90.49 Acquired absence of other specified parts of digestive tract; Z87.891 Personal history of nicotine dependence; Z88.0 Allergy status to penicillin; Z88.8 Allergy status to other drugs, medicaments and biological substances; Z88.5 Allergy status to narcotic agent
CPT/HCPCS: 36415; 70450; 74176; 80053; 81003; 82150; 82550; 82553; 83690; 83735; 84484; 85025; 99284

== ENCOUNTER → 2018-05-17 | Outpatient (CLI) | payer BC | END | disposition home or self-care (01) | LOC: RADCTMAIN 07:38 | PROVIDERS: ATTEND Internal Medicine Geriatric Medicine | DX: Z53.9 Procedure and treatment not carried out, unspecified reason (principal) ==

== ENCOUNTER → 2018-05-31 | Outpatient (CLI) | payer BC ==
--- NOTE | 2018-06-01 08:11 | CT ---
EXAMINATION TYPE: CT angio chest DATE OF EXAM: 05/31/2018 COMPARISON: 01/30/2018 HISTORY: HX Pulmonary embolus CT DLP: 416.9 mGycm. Automated Exposure Control for Dose Reduction was Utilized. CONTRAST: CTA scan of the thorax is performed with IV Contrast, patient injected with 100 mL of Isovue 370, pul monary embolism protocol. MIP Images are created on CT scanner and reviewed. FINDINGS: LUNGS: The lungs are grossly clear, there is no concerning parenchymal mass or nodule identified. T here is no pleural effusion or pneumothorax seen. The tracheobronchial tree is patent. MEDIASTINUM: There is satisfactory enhancement of the pulmonary artery and its branches, there is no CT evidence for pulmonary embolism. The previously seen bilateral pulmonary emboli have entirely reso lved in the interim. Main pulmonary artery is nonenlarged. Right ventricle the left ventricle ratio i s normal. There are no greater than 1 cm hilar or mediastinal lymph nodes. No cardiomegaly or peric ardial effusion is seen. There is a small Bochdalek hernia. OTHER: Solitary pancreatic parenchymal calcification is incidentally noted. Small splenule seen adjac ent to the [place] spleen. IMPRESSION: Complete resolution of the previously seen bilateral pulmonary emboli with no current [place] dence of right heart strain. There is also resolution of the previously seen pleural effusion.
== END | disposition home or self-care (01) ==
LOC: RADCTMAIN 14:56
PROVIDERS: ATTEND Internal Medicine Geriatric Medicine
DX: I26.99 Other pulmonary embolism without acute cor pulmonale (principal); J90 Pleural effusion, not elsewhere classified
CPT/HCPCS: 82565; 84520; 71275; 36415; Q9967

== ENCOUNTER 2018-10-31 22:20 | Emergency (ER) | payer BC ==
[2018-11-01 00:08] LABS: Basophils % (A) 0 %; Eosinophils # (A) 0.2 k/uL (0-0.7); Eosinophils % (A) 3 %; HCT 43.2 % (39.0-53.0); HGB 14.8 gm/dL (13.0-17.5); Lymphocytes # (A) 2.1 k/uL (1.0-4.8); Lymphocytes % (A) 35 %; MCH 33.1 pg (25.0-35.0); MCHC 34.3 g/dL (31.0-37.0); MCV 96.5 fL (80.0-100.0); Mean Platelet Volume 8.4; Monocytes # (A) 0.4 k/uL (0-1.0); Monocytes % (A) 7 %; Neutrophils # (A) 3.1 k/uL (1.3-7.7); Neutrophils % (A) 52 %; Platelet Count 144 k/uL (150-450); RBC 4.48 m/uL (4.30-5.90)
[2018-11-01 00:21] LABS: D-Dimer 0.35 mg/L FEU (<0.60); INR 0.9 (<1.2); Partial Thromboplastin Time 27.8 sec (22.0-30.0); Prothrombin Time 10.2 sec (9.0-12.0)
[2018-11-01 00:26] LABS: Albumin 3.9 g/dL (3.5-5.0); Calcium 8.9 mg/dL (8.4-10.2); Magnesium 2.2 mg/dL (1.6-2.3); Potassium 4.7 mmol/L (3.5-5.1); Total Bilirubin 0.5 mg/dL (0.2-1.3); Total Protein 6.7 g/dL (6.3-8.2)
[2018-11-01 00:35] LABS: Creatine Kinase 69 U/L (55-170)
[2018-11-01] MEDS ORDERED: SODIUM CHLORIDE 0.9% 500 ML 500 ML IV STA (00:46)
[2018-11-01 00:48] LABS: Creatine Kinase MB 0.5 ng/mL (0.0-2.4); Troponin I <0.012 ng/mL (0.000-0.034)
--- NOTE | 2018-11-01 00:57 | ED ---
Chest Pain HPI - General Chief Complaint: Chest Pain Stated Complaint: Chest Pain Source: patient Mode of arrival: wheelchair Limitations: no limitations - History of Present Illness Initial Comments: This patient is a 68-year-old man who presents to have evaluation for left- sided chest pain that is been going on for approximately 20 hours. The patient describes as feeling like a "constant cramping", mild intensity. He has not noted worsening or relieving factors. No associated symptoms. Other review of systems she does have a nonproductive cough that is going on for number of months. He states that he has been given a course of azithromycin which she completed without much change, and he is finishing a course of levofloxacin, and has not noted a change it. MD Complaint: chest pain Onset/Timin -: hour(s) Onset: during rest Pain Location: left chest Pain Radiation: none Severity: moderate Quality: dull, other (Cramping) Consistency: constant Improves With: nothing Worsens With: nothing Treatments Prior to Arrival: none - Related Data Home Medications Medication Instructions Recorded Confirmed L.acidoph,Paracasei, B.lactis 1 cap PO DAILY 01/30/18 10/31/18 [Probiotic] Rivaroxaban [Xarelto] 20 mg PO DAILY 10/31/18 10/31/18 Allergies Allergy/AdvReac Type Severity Reaction Status Date / Time amoxicillin AdvReac Abdominal Verified 10/31/18 23:06 Pain Antihistamines - Alkylamine AdvReac Unknown Verified 10/31/18 23:06 morphine AdvReac Itching Verified 10/31/18 23:06 Review of Systems ROS Statement: Those systems with pertinent positive or pertinent negative responses have been documented in the HPI. ROS Other: All systems not noted in ROS Statement are negative. Constitutional: Denies: fever, chills Respiratory: Reports: cough. Denies: dyspnea, wheezes, hemoptysis Cardiovascular: Reports: chest pain. Denies: palpitations, orthopnea, edema, syncope Gastrointestinal: Denies: abdominal pain, nausea, vomiting Genitourinary: Denies: dysuria, hematuria Musculoskeletal: Denies: back pain Skin: Denies: rash Neurological: Denies: headache EKG Findings - EKG Results: EKG: interpreted by ERMD, WNL, sinus rhythm, normal axis, normal QRS, normal ST/ T, no acute changes - AL, Pacemaker, Normal: Normal tracing: normal tracing Past Medical History Past Medical History: GERD/Reflux, Pulmonary Embolus (PE) Additional Past Medical History / Comment(s): DVT more than 15 years ago, hemorrhoids pe History of Any Multi-Drug Resistant Organisms: None Reported Past Surgical History: Appendectomy, Back Surgery, Orthopedic Surgery, Tonsillectomy Additional Past Surgical History / Comment(s): lt knee menisucs sx, saphenous veins reduced by radio therapy. Past Anesthesia/Blood Transfusion Reactions: No Reported Reaction Past Psychological History: No Psychological Hx Reported Smoking Status: Former smoker Past Alcohol Use History: None Reported Past Drug Use History: None Reported - Past Family History Mother Family Medical History: No Reported History Additional Family Medical History / Comment(s): mom is alive-healthy at age 92 is no major medical problems. Father Family Medical History: Cancer Additional Family Medical History / Comment(s): from reanl cancer at age 69 Sister(s) Family Medical History: Blood Disorder Additional Family Medical History / Comment(s): Patient has one sister with factor V deficiency. No other family members have any deficiency, clotting, bleeding disorders he denies any diabetes or heart disease in the family. Patient does not have any children. General Exam Limitations: no limitations General appearance: alert, in no apparent distress Head exam: Present: atraumatic, normocephalic Eye exam: Present: normal appearance. Absent: scleral icterus, conjunctival injection ENT exam: Present: normal oropharynx Neck exam: Present: normal inspection Respiratory exam: Present: normal lung sounds bilaterally. Absent: respiratory distress, wheezes, rales, rhonchi, stridor Cardiovascular Exam: Present: regular rate, normal rhythm, normal heart sounds. Absent: systolic murmur, diastolic murmur, rubs, gallop GI/Abdominal exam: Present: soft. Absent: distended, tenderness, guarding, rebound, rigid, mass Extremities exam: Present: normal inspection, normal capillary refill. Absent: pedal edema, calf tenderness Back exam: Present: normal inspection. Absent: CVA tenderness (R), CVA tenderness (L) Neurological exam: Present: alert Skin exam: Present: warm, dry, intact, normal color. Absent: rash Course Vital Signs 10/31/18 10/31/18 10/31/18 22:23 23:00 23:30 Temperature 97.7 F Pulse Rate 78 73 66 Respiratory 16 18 14 Rate Blood Pressure 149/95 145/99 134/95 O2 Sat by Pulse 98 98 97 Oximetry 11/01/18 11/01/18 00:00 00:30 Temperature Pulse Rate 75 73 Respiratory 12 11 L Rate Blood Pressure 123/92 123/92 O2 Sat by Pulse 96 97 Oximetry Disposition Clinical Impression: Chest pain Disposition: HOME SELF-CARE Condition: Good Instructions: Chest Pain (ED) Is patient prescribed a controlled substance at d/c from ED?: No Referrals: Wayne Amaya MD [Primary Care Provider] - 1-2 days
[2018-11-01 01:47] LABS: Appearance,Urine Clear (Clear); Bilirubin,Urine Negative (Negative); Blood,Urine Negative (Negative); Color,Urine Light Yellow; Glucose,Urine (UA) Negative (Negative); Ketones,Urine Negative (Negative); Leukocyte Esterase,Urine Negative (Negative); Nitrite,Urine Negative (Negative); PH, Urine 7.5 (5.0-8.0); Protein,Urine Negative (Negative); Specific Gravity,Urine 1.016 (1.001-1.035); Urobilinogen,Urine <2.0 mg/dL (<2.0)
[2018-11-01 03:15] VITALS: BP 133/94; PULSE 63; RESP 16; TEMP 98
== END 2018-11-01 03:15 | disposition home or self-care (01) ==
LOC: EC 22:20
DX: R07.9 Chest pain, unspecified (principal); R05 Cough; K21.9 Gastro-esophageal reflux disease without esophagitis; Z86.711 Personal history of pulmonary embolism; Z86.718 Personal history of other venous thrombosis and embolism; Z87.891 Personal history of nicotine dependence; Z79.01 Long term (current) use of anticoagulants; Z88.0 Allergy status to penicillin; Z88.8 Allergy status to other drugs, medicaments and biological substances; Z88.5 Allergy status to narcotic agent
CPT/HCPCS: 36415; 80053; 81003; 82550; 82553; 83735; 84484; 85025; 85379; 85610; 85730; 93005; 96360; 99285

== ENCOUNTER → 2018-12-20 | Outpatient (CLI) | payer BC ==
--- NOTE | 2018-12-21 08:32 | XR ---
EXAMINATION TYPE: XR lumbosacral spine min 4V DATE OF EXAM: 12/20/2018 COMPARISON: None HISTORY: Low back pain x10 days TECHNIQUE: Five-view lumbar spine FINDINGS: There 5 lumbar-type tubal bodies. Pedicles are intact. Facet degenerative changes are prese nt L3-4 through L5-S1 greater on the left. There is disc space narrowing L5-S1 and L4-5. Some posterior disc space narrowing is present L3-4. Ve rtebral body heights are preserved. IMPRESSION: 1. Degenerative disc changes lower lumbar spine. 2. Facet degenerative changes lower lumbar spine
== END | disposition home or self-care (01) ==
LOC: RADXRMAIN 16:55
PROVIDERS: ATTEND Internal Medicine Geriatric Medicine
DX: M47.817 Spondylosis without myelopathy or radiculopathy, lumbosacral region (principal)
CPT/HCPCS: 72110

== ENCOUNTER → 2019-01-14 | Outpatient (CLI) | payer BC ==
--- NOTE | 2019-01-15 08:16 | XR ---
EXAMINATION TYPE: XR chest 2V DATE OF EXAM: 01/14/2019 COMPARISON: 05/31/2018 TECHNIQUE: PA and lateral views submitted. HISTORY: Chest pain FINDINGS: The lungs are clear and there is no pneumothorax, pleural effusion, or focal pneumonia. Bilateral p leural thickening noted. Hypertrophic and degenerative change of the spine. No overt failure. Heart s ize is stable. IMPRESSION: 1. No acute process.
== END | disposition home or self-care (01) ==
LOC: RADXRMAIN 16:22
PROVIDERS: ATTEND Internal Medicine Geriatric Medicine
DX: I27.82 Chronic pulmonary embolism (principal)
CPT/HCPCS: 71046

== ENCOUNTER → 2019-01-18 | Outpatient (CLI) | payer BC ==
--- NOTE | 2019-01-18 08:22 | MR ---
EXAMINATION TYPE: MR lumbar spine wo con DATE OF EXAM: 01/18/2019 COMPARISON: NONE HISTORY: Pain/numbness in left leg TECHNIQUE: T1 and T2 axial and sagittal images of the lumbar spine are submitted. FINDINGS: There is no abnormal signal seen within the visualized spinal cord or paraspinal soft tissu es. Heterogeneous marrow signal is nonspecific most likely the basis of marrow conversion. Lymphoprol iferative disorder or space-occupying marrow process not entirely excluded should be correlated clini roger. Renal cortical loss on the right suggest chronic medical renal disease. At T12/L1 there is degenerative disc disease. Tiny central disc bulge but no canal stenosis or spinal cord contact. No foraminal encroachment. At L1-2 there is no disc herniation, canal stenosis, or foraminal encroachment. At L2-3 there is no disc herniation or canal stenosis. No foraminal encroachment. At L3-4 there is degenerative disc disease and circumferential disc bulging with facet hypertrophy. N o Canal stenosis. Neural foramina patent. No focal herniation. At L4-5 there is severe degenerative disc disease. There is facet arthropathy. This results in mild b ilateral foraminal encroachment borderline central stenosis At L5-S1 there is degenerative disc disease with facet arthropathy. No canal stenosis or focal hernia tion. There is mild bilateral foraminal encroachment. IMPRESSION: 1. Multilevel degenerative disc disease with severe changes at L4-L5. Foraminal encroachment L4-5 and L5-S1 secondary to degenerative disc disease and hypertrophic change of the facets. 2. No focal disc herniation. Borderline central stenosis L4-L5 as discussed above. 3. Heterogeneous marrow signal is nonspecific most likely the basis of marrow reconversion. Other rosanne ologies as discussed above. 4. Tiny central disc bulge T12-L1.
--- NOTE | 2019-01-18 09:37 | CT ---
EXAMINATION TYPE: CT angio chest DATE OF EXAM: 01/18/2019 COMPARISON: CTA Chest by 25/04/2018 HISTORY: Left-sided chest pain with shortness of breath. Chronic pulmonary embolism per order. CT DLP: 404.9 mGycm. Automated Exposure Control for Dose Reduction was Utilized. CONTRAST: CTA scan of the thorax is performed with IV Contrast, patient injected with 54 mL of Isovue 370, pulm onary embolism protocol. MIP Images are created on CT scanner and reviewed. FINDINGS: LUNGS: There is respiratory motion artifact degradation making evaluation suboptimal particularly for subcentimeter nodularity. Lungs are grossly clear without suspicious consolidation or infiltrate. No large pulmonary masses are present. No pleural effusion or pneumothorax is identified bilaterally. T racheobronchial tree is patent. There is tiny fat-containing diaphragmatic hernia Bochdalek type post erior left lung axial image 123 noted. MEDIASTINUM: There is suboptimal bolus with contrast opacification of the right and left heart system s and the nonoptimal contrast bolus in the pulmonary arteries, there is some heterogeneity also prese nt but no convincing evidence for acute pulmonary embolism on current study. There are no greater th an 1 cm hilar or mediastinal lymph nodes. No cardiomegaly or pericardial effusion is seen. There is reflux of contrast into IVC even infrahepatic portion as well as the hepatic veins. CT findings sugg esting degree of right heart failure. Right pulmonary artery is dilated to 2.8 cm, CT findings sugges ting underlying pulmonary hypertension. OTHER: S-shaped scoliosis is redemonstrated. Solitary small calcific focus distal pancreatectomy is 1 51 is redemonstrated near splenule. IMPRESSION: Suboptimal study without CT evidence for acute pulmonary embolism. No suspicious acute pu lmonary process. Possible underlying pulmonary hypertension and right heart failure. No cardiomegaly noted. No significant change from most recent prior.
== END | disposition home or self-care (01) ==
LOC: RADCTMAIN 07:12
PROVIDERS: ATTEND Internal Medicine Geriatric Medicine
DX: M48.061 Spinal stenosis, lumbar region without neurogenic claudication (principal); M51.36 Other intervertebral disc degeneration, lumbar region; R93.7 Abnormal findings on diagnostic imaging of other parts of musculoskeletal system; M51.37 Other intervertebral disc degeneration, lumbosacral region; I27.82 Chronic pulmonary embolism
CPT/HCPCS: 82565; 84520; 71275; 36415; 72148; Q9967

== ENCOUNTER → 2019-02-08 | Outpatient (CLI) | payer BC ==
--- NOTE | 2019-02-09 10:16 | ECHOF ---
Referral Reason:I27.21 Secondary pulmonary arterial hypertension MEASUREMENTS -------- HEIGHT: 185.4 cm WEIGHT: 100.2 kg BP: 124/77 RVIDd: 3.5 cm (< 3.3) IVSd: 1.3 cm (0.6 - 1.1) LVIDd: 4.2 cm (3.9 - 5.3) LVPWd: 1.3 cm (0.6 - 1.1) IVSs: 1.9 cm LVIDs: 3.1 cm LVPWs: 1.5 cm LA Diam: 3.3 cm (2.7 - 3.8) LAESV Index (A-L): 25.38 ml/m Ao Diam: 3.8 cm (2.0 - 3.7) AV Cusp: 2.0 cm (1.5 - 2.6) MV EXCURSION: 16.269 mm (> 18.000) MV EF SLOPE: 91 mm/s (70 - 150) EPSS: 0.8 cm MV E Vic: 0.96 m/s MV DecT: 192 ms MV A Vic: 0.84 m/s MV E/A Ratio: 1.13 RAP: 5.00 mmHg RVSP: 29.78 mmHg FINDINGS -------- Sinus rhythm. This was a technically difficult study with suboptimal views. The left ventricular size is normal. There is mild concentric left ventricular hypertrophy. Overa ll left ventricular systolic function is low-normal with, an EF between 50 - 55 %. The right ventricle is mildly enlarged. Normal LA size by volume 22+/-6 ml/m2. The right atrium is normal in size. 5 ml of Lumason was utilized for enhancement of images. The aortic valve is trileaflet and appears structurally normal. There is mild aortic regurgitation. The mitral valve is normal. Mild tricuspid regurgitation present. Right ventricular systolic pressure is normal at < 35 mmHg. There is no pulmonic regurgitation present. The aortic root is dilated measuring 3.8cm. Normal inferior vena cava with normal inspiratory collapse consistent with estimated right atrial pre ssure of 5 mmHg. There is no pericardial effusion. CONCLUSIONS -------- 1. Sinus rhythm. 2. This was a technically difficult study with suboptimal views. 3. The left ventricular size is normal. 4. There is mild concentric left ventricular hypertrophy. 5. Overall left ventricular systolic function is low-normal with, an EF between 50 - 55 %. 6. The right ventricle is mildly enlarged. 7. Normal LA size by volume 22+/-6 ml/m2. 8. The right atrium is normal in size. 9. 5 ml of Lumason was utilized for enhancement of images. 10. The aortic valve is trileaflet and appears structurally normal. 11. There is mild aortic regurgitation. 12. The mitral valve is normal. 13. Mild tricuspid regurgitation present. 14. Right ventricular systolic pressure is normal at < 35 mmHg. 15. There is no pulmonic regurgitation present. 16. The aortic root is dilated measuring 3.8cm. 17. Normal inferior vena cava with normal inspiratory collapse consistent with estimated right atrial pressure of 5 mmHg. 18. There is no pericardial effusion. ASSOCIATE MEDIA PLANNER: Migdalia Chin RDCS
== END | disposition home or self-care (01) ==
LOC: RADECHMAIN 15:08
PROVIDERS: ATTEND Internal Medicine Critical Care Medicine
DX: I08.2 Rheumatic disorders of both aortic and tricuspid valves (principal); I27.21 Secondary pulmonary arterial hypertension
CPT/HCPCS: 93306; Q9950

== ENCOUNTER → 2019-06-21 | Outpatient (CLI) | payer BC ==
[2019-06-21 15:28] LABS: Basophils % (A) 0 %; Eosinophils # (A) 0.1 k/uL (0-0.7); Eosinophils % (A) 0 %; HCT 41.6 % (39.0-53.0); HGB 14.4 gm/dL (13.0-17.5); Lymphocytes # (A) 0.9 k/uL (1.0-4.8); Lymphocytes % (A) 7 %; MCH 32.7 pg (25.0-35.0); MCHC 34.7 g/dL (31.0-37.0); MCV 94.3 fL (80.0-100.0); Mean Platelet Volume 7.6; Monocytes % (A) 8 %; Neutrophils # (A) 10.4 k/uL (1.3-7.7); Neutrophils % (A) 82 %; Platelet Count 185 k/uL (150-450); RBC 4.41 m/uL (4.30-5.90); WBC 12.7 k/uL (3.8-10.6)
--- NOTE | 2019-06-21 16:31 | XR ---
EXAMINATION TYPE: XR chest 2V DATE OF EXAM: 06/21/2019 COMPARISON: 01/14/2019 HISTORY: Cough. TECHNIQUE: Frontal and lateral views of the chest are obtained. FINDINGS: Left mid and lower lung zone patchy opacities. Right lung is clear. Cardiac and pulmonary v asculature are within normal limits. Blunting of the left costophrenic angle. No pneumothorax. Mild d egenerative changes in the thoracic spine. IMPRESSION: Lingula and left lower lobe pneumonia with small parapneumonic effusion. Follow-up until resolution.
[2019-06-21 22:34] LABS: Erythrocyte Sedimentation Rate 80 mm/hr (0-15)
[2019-06-22 00:29] LABS: African American GFR (CKD) 72.1 (60.0-200.0); Albumin 4.2 g/dL (3.80-4.90); Albumin/Globulin Ratio 1.68 (1.60-3.17); Anion Gap 12.4 mmol/L (4.00-12.00); BUN/Creat Ratio 14.17 Ratio (12.00-20.00); C Reactive Protein 28.9 mg/dL (0.0-0.8); Calcium 8.6 mg/dL (8.7-10.3); Carbon Dioxide 22.6 mmol/L (21.6-31.8); Globulin 2.5 g/dL (1.6-3.3); Potassium 4.8 mmol/L (3.5-5.5); Total Bilirubin 1.6 mg/dL (0.3-1.2); Total Protein 6.7 g/dL (6.2-8.2)
== END | disposition home or self-care (01) ==
LOC: LABWHC1 14:48
PROVIDERS: ATTEND Internal Medicine Geriatric Medicine
DX: J18.1 Lobar pneumonia, unspecified organism (principal); J90 Pleural effusion, not elsewhere classified; R50.9 Fever, unspecified
CPT/HCPCS: 36415; 71046; 80053; 83615; 85025; 85652; 86140; 87040

== ENCOUNTER → 2019-07-05 | Outpatient (CLI) | payer BC ==
[2019-07-05 18:36] LABS: African American GFR (CKD) 72.1 (60.0-200.0)
== END | disposition home or self-care (01) ==
LOC: LABWHC1 13:18
PROVIDERS: ATTEND Internal Medicine Geriatric Medicine
DX: Z01.812 Encounter for preprocedural laboratory examination (principal)
CPT/HCPCS: 36415; 82565; 84520

== ENCOUNTER 2019-07-08 15:39 | Emergency (ER) | payer BC ==
[2019-07-08 15:50] VITALS: RESP 18
--- NOTE | 2019-07-08 16:26 | ED ---
Chest Pain HPI - General Chief Complaint: Chest Pain Stated Complaint: Chest pain Time Seen by Provider: 07/08/19 16:02 Source: patient, RN notes reviewed, old records reviewed Mode of arrival: wheelchair Limitations: no limitations - History of Present Illness Initial Comments: This is a 69-year-old male the ER for evaluation. Patient's coming in for evaluation of some chest pain concern he has pneumonia or blood clot. Patient has history of blood clot DVT. Patient is on blood thinners. No recent travel history no sick contacts. Cough or congestion. Patient has multiple recent episodes of flulike or viral type illnesses or last few months states he has not been feeling well. Patient was scheduled for outpatient CAT scan tomorrow states he doesn't like to make it to that evaluation with his very nervous about the findings. Patient also left-sided chest pain today that was worse and is been dealing with. MD Complaint: chest pain (Left-sided) -: hour(s) (For weeks with illness) Onset: during rest Pain Location: left chest Pain Radiation: none Severity: mild Severity scale (1-10): 2 Consistency: intermittent, now resolved Improves With: nothing Worsens With: nothing Treatments Prior to Arrival: none - Related Data Home Medications Medication Instructions Recorded Confirmed L.acidoph,Paracasei, B.lactis 1 cap PO AC-SUPPER 01/30/18 07/08/19 [Probiotic] Rivaroxaban [Xarelto] 20 mg PO AC-SUPPER 10/31/18 07/08/19 Glucosam/Waldemar-Msm1/C/Alan/Bosw 1 tab PO DAILY PRN 07/08/19 07/08/19 [Fqctxhfkufu-Tlmgfvbhnvl-KCG Tb] Omeprazole 20 mg PO DAILY PRN 07/08/19 07/08/19 Allergies Allergy/AdvReac Type Severity Reaction Status Date / Time amoxicillin AdvReac Abdominal Verified 07/08/19 16:29 Pain Antihistamines - Alkylamine AdvReac Unknown Verified 07/08/19 16:29 morphine AdvReac Itching Verified 07/08/19 16:29 Review of Systems ROS Statement: Those systems with pertinent positive or pertinent negative responses have been documented in the HPI. ROS Other: All systems not noted in ROS Statement are negative. EKG Findings - EKG Comments: EKG Findings:: EKG shows sinus rhythm rate of 80, CT 184, QRS 70, QTc 435 Past Medical History Past Medical History: GERD/Reflux, Pulmonary Embolus (PE) Additional Past Medical History / Comment(s): DVT more than 15 years ago, hemorrhoids, PE History of Any Multi-Drug Resistant Organisms: None Reported Past Surgical History: Appendectomy, Back Surgery, Orthopedic Surgery, Tonsillectomy Additional Past Surgical History / Comment(s): lt knee menisucs sx, saphenous veins reduced by radio therapy. Past Anesthesia/Blood Transfusion Reactions: No Reported Reaction Past Psychological History: No Psychological Hx Reported Smoking Status: Former smoker Past Alcohol Use History: None Reported Past Drug Use History: None Reported - Past Family History Mother Family Medical History: No Reported History Additional Family Medical History / Comment(s): mom is alive-healthy at age 92 is no major medical problems. Father Family Medical History: Cancer Additional Family Medical History / Comment(s): from reanl cancer at age 69 Sister(s) Family Medical History: Blood Disorder Additional Family Medical History / Comment(s): Patient has one sister with factor V deficiency. No other family members have any deficiency, clotting, bleeding disorders he denies any diabetes or heart disease in the family. Patient does not have any children. General Exam Limitations: no limitations General appearance: alert, in no apparent distress, anxious Head exam: Present: atraumatic, normocephalic, normal inspection Eye exam: Present: normal appearance, PERRL, EOMI. Absent: scleral icterus, conjunctival injection, periorbital swelling ENT exam: Present: normal exam, mucous membranes moist Neck exam: Present: normal inspection. Absent: tenderness, meningismus, lympha denopathy Respiratory exam: Present: normal lung sounds bilaterally. Absent: respiratory distress, wheezes, rales, rhonchi, stridor Cardiovascular Exam: Present: regular rate, normal rhythm, normal heart sounds. Absent: systolic murmur, diastolic murmur, rubs, gallop, clicks GI/Abdominal exam: Present: soft, normal bowel sounds. Absent: distended, tenderness, guarding, rebound, rigid Extremities exam: Present: normal inspection, full ROM, normal capillary refill. Absent: tenderness, pedal edema, joint swelling, calf tenderness Back exam: Present: normal inspection Neurological exam: Present: alert, oriented X3, CN II-XII intact Psychiatric exam: Present: normal affect, normal mood Skin exam: Present: warm, dry, intact, normal color. Absent: rash Course Vital Signs 07/08/19 07/08/19 15:46 15:50 Temperature 98.1 F Pulse Rate 71 Pulse Rate [ 64 Left Lateral [employer] ] Respiratory 18 Rate Blood Pressure 116/74 O2 Sat by Pulse 98 Oximetry - Reevaluation(s) Reevaluation #1: 07/08/19 17:47 Medical records reviewed Reevaluation #2: 07/08/19 17:47 A she remains in no distress no chest pain currently here in the ER. Patient feels great upon delivery results and states he feels good for discharge home Chest Pain MDM - MDM 9 male nonspecific chest pain history of blood clot, patient concern for blood clot or pneumonia. CT is negative labwork is normal. Patient can be discharged Disposition Clinical Impression: Chest pain Disposition: HOME SELF-CARE Condition: Good Instructions (If sedation given, give patient instructions): Chest Pain (ED) Is patient prescribed a controlled substance at d/c from ED?: No Referrals: Wayne Amaya MD [Primary Care Provider] - 1-2 days
[2019-07-08 16:30] LABS: Basophils % (A) 1 %; Eosinophils # (A) 0.1 k/uL (0-0.7); Eosinophils % (A) 1 %; HCT 43.4 % (39.0-53.0); HGB 14.4 gm/dL (13.0-17.5); Lymphocytes # (A) 1.9 k/uL (1.0-4.8); Lymphocytes % (A) 30 %; MCH 32.1 pg (25.0-35.0); MCHC 33.2 g/dL (31.0-37.0); MCV 96.6 fL (80.0-100.0); Mean Platelet Volume 7.7; Monocytes # (A) 0.4 k/uL (0-1.0); Monocytes % (A) 7 %; Neutrophils # (A) 3.8 k/uL (1.3-7.7); Neutrophils % (A) 59 %; Platelet Count 249 k/uL (150-450); RBC 4.49 m/uL (4.30-5.90); RDW 15.6 % (11.5-15.5); WBC 6.4 k/uL (3.8-10.6)
[2019-07-08 16:41] LABS: Albumin 4.2 g/dL (3.5-5.0); Calcium 9.6 mg/dL (8.4-10.2); Magnesium 2.3 mg/dL (1.6-2.3); Potassium 4.9 mmol/L (3.5-5.1); Total Bilirubin 0.6 mg/dL (0.2-1.3); Total Protein 7.3 g/dL (6.3-8.2)
[2019-07-08 16:49] LABS: D-Dimer 0.43 mg/L FEU (<0.60); Partial Thromboplastin Time 26.4 sec (22.0-30.0); Prothrombin Time 10.4 sec (9.0-12.0)
--- NOTE | 2019-07-08 16:51 | XR ---
EXAMINATION TYPE: XR chest 2V DATE OF EXAM: 07/08/2019 COMPARISON: 06/21/2019 HISTORY: Chest pain TECHNIQUE: Frontal and lateral views of the chest are obtained. FINDINGS: Heart and mediastinum are normal. There is patchy airspace infiltrate in the posterior asp ect of the left lower lobe. There is also some infiltrate in the lingula left upper lobe. The right l bertha is clear. There are no hilar masses. There is slight anterior wedging of a few thoracic vertebra. There is mild blunting left posterior costophrenic angle. IMPRESSION: There is left lower lobe and lingula left upper lobe pneumonia that appears to show a ch anging pattern compared to last exam. No heart failure.
--- NOTE | 2019-07-08 17:29 | CT ---
EXAMINATION TYPE: CT angio chest DATE OF EXAM: 07/08/2019 5:03 PM COMPARISON: 01/18/2019 HISTORY: Left sided chest pain, history of PE. CT DLP: 418.5 mGycm Automated exposure control for dose reduction was used. CONTRAST: CTA scan of the thorax is performed with IV Contrast, patient injected with 80 mL of Isovue 370, pulm onary embolism protocol. There are 3-D post processed images.. FINDINGS: There is some groundglass interstitial infiltrate left upper lobe. There is a 4 cm triangular-shaped infiltrate lingula left upper lobe. There is a 4 x 2.5 cm area of consolidation in the subpleural pos terior left lower lobe. There is adjacent 3 cm area of consolidation inferior posterior left lower lo be. There is no pleural effusion. I see no filling defects in the pulmonary arteries. Heart size is normal. There is no pericardial eff usion. There are no hilar masses. There is no mediastinal adenopathy. There are some spondylotic lazar ges in the thoracic spine. I see no compression fracture. There is mild thoracolumbar levoscoliosis. IMPRESSION: MULTIPLE AREAS OF AIRSPACE CONSOLIDATION IN THE LEFT LUNG ABOVE. INTERSTITIAL INFILTRATE LEFT UPPE R LOBE. THIS PROBABLY RELATES TO INFLAMMATORY DISEASE. PULMONARY ABNORMALITY IS NEW COMPARED TO OLD E XAM. NO EVIDENCE OF PULMONARY EMBOLISM.
[2019-07-08 18:09] VITALS: BP 130/87; PULSE 68; TEMP 97.8
== END 2019-07-08 18:20 | disposition home or self-care (01) ==
LOC: EC 15:39
DX: R07.9 Chest pain, unspecified (principal); Z86.711 Personal history of pulmonary embolism; Z86.718 Personal history of other venous thrombosis and embolism; Z87.891 Personal history of nicotine dependence; Z79.01 Long term (current) use of anticoagulants; Z88.0 Allergy status to penicillin; Z88.8 Allergy status to other drugs, medicaments and biological substances; Z88.5 Allergy status to narcotic agent
CPT/HCPCS: 36415; 93005; 85379; 83880; 80053; 83690; 83735; 84484; 85025; 85610; 85730; 71046; 71275; 99285; Q9967

== ENCOUNTER → 2019-07-24 | Outpatient (CLI) | payer BC ==
--- NOTE | 2019-07-24 15:43 | XR ---
EXAMINATION TYPE: XR chest 2V DATE OF EXAM: 07/24/2019 COMPARISON: Chest x-ray and CTA chest July 08, 2019 HISTORY: History of pulmonary embolism 2 years ago with pneumonia 4 weeks ago. TECHNIQUE: Frontal and lateral views of the chest are obtained. FINDINGS: There is continued improved aeration left lung base. Background chronic parenchymal change . No new infiltrate, pleural effusion, or pneumothorax. Persistent bilateral mid to lower right lung pleural thickening. The cardiac silhouette size remains within normal limits. The osseous structur es are intact. IMPRESSION: Improving left lower lung infiltrate and/or atelectasis on background chronic changes. N o new infiltrate is seen.
== END | disposition home or self-care (01) ==
LOC: RADXRMAIN 11:50
PROVIDERS: ATTEND Internal Medicine Geriatric Medicine
DX: J18.9 Pneumonia, unspecified organism (principal)
CPT/HCPCS: 71046

== ENCOUNTER → 2019-10-07 | Outpatient (CLI) | payer BC ==
--- NOTE | 2019-10-07 13:19 | XR ---
EXAMINATION TYPE: XR chest 2V DATE OF EXAM: 10/07/2019 COMPARISON: History of pneumonia in July. HISTORY: Chest x-ray July 24, 2019. CTA chest July 08, 2019 TECHNIQUE: Frontal and lateral views of the chest are obtained. FINDINGS: There is background chronic emphysematous change with continued improved aeration left mid to lower lung. No new focal airspace opacity, pleural effusion, or pneumothorax is identified. Asymm etric right lateral pleural thickening redemonstrated. The cardiac silhouette size remains within no rmal limits with atherosclerotic aorta. The osseous structures are intact. IMPRESSION: Resolving left mid to lower lung acute infiltrate. No new infiltrate is seen.
== END | disposition home or self-care (01) ==
LOC: RADXRMAIN 12:56
PROVIDERS: ATTEND Internal Medicine Geriatric Medicine
DX: R91.8 Other nonspecific abnormal finding of lung field (principal)
CPT/HCPCS: 71046

== ENCOUNTER → 2020-03-31 | Outpatient (CLI) | payer MEDICARE ==
--- NOTE | 2020-03-31 11:19 | CT ---
EXAMINATION TYPE: CT soft tissue neck w con DATE OF EXAM: 03/31/2020 HISTORY: Lower lip swelling. PreOp scan. Possible lymph node involvement COMPARISON: NONE CT DLP: 525.5 mGycm. Automated Exposure Control for Dose Reduction was Utilized. TECHNIQUE: CT scan of the neck is performed with IV Contrast, patient injected with 100 mL of Isovue 300, axial images are obtained, coronal and sagittal reformatted images are reviewed. FINDINGS: Airway: Extensive spray artifact partially screws visualization at direct surrounding structures from multiple dental fillings. Oral cavity is partially obscured. Possible secretions within the vallecul a and piriform sinuses that appear inspissated. Parotid/submandibular glands: Small probable intraparotid lymph nodes seen bilaterally. Submandibular glands are unremarkable. Carotid/Vascular Structures: No hemodynamically significant stenosis in the major arterial vasculatur e of the neck. Conventional three-vessel branch pattern of the aortic arch. Osseous Structures: Nonspecific lucent lesion of the C4 vertebral body measurers 3 mm. Moderate multi level degenerative change of the spine. Other: No pathologically enlarged lymph nodes are seen within the neck. Submental lymph nodes measure up to 6 mm in short axis. IMPRESSION: 1. Few nonenlarged cervical lymph nodes and submandibular lymph nodes. No pathologically enlarged lym ph nodes seen. 2. Inspissated density within the valleculae and piriform sinuses, possibly secretions. Direct visual ization recommended to exclude polyp or mass. 3. Indeterminate lucent lesion of C3 measures only 3 mm and could relate to a focus of osseous demine ralization. There is further clinical concern MRI with contrast could be performed of the cervical sp ine.
== END | disposition home or self-care (01) ==
LOC: RADCTMAIN 09:51
PROVIDERS: ATTEND Otolaryngology
DX: R22.1 Localized swelling, mass and lump, neck (principal); Z88.0 Allergy status to penicillin; Z88.8 Allergy status to other drugs, medicaments and biological substances
CPT/HCPCS: 82565; 84520; 70491; 36415; Q9967

== ENCOUNTER 2020-04-30 19:24 | Emergency (ER) | payer MEDICARE ==
[2020-04-30 19:32] VITALS: TEMP 98
[2020-04-30] MEDS ORDERED: GLYCERIN ADULT SUPPOSITORY 1 EACH RECTAL STA (20:34)
--- NOTE | 2020-04-30 21:00 | XR ---
EXAMINATION TYPE: XR KUB DATE OF EXAM: 04/30/2020 COMPARISON: NONE HISTORY: Constipation TECHNIQUE: 2 views supine FINDINGS: Bowel gas pattern is normal. There is no sign of intestinal obstruction or pneumoperitoneum . Fecal pattern is normal. There is no sign of a mass. There are no pathologic calcifications over th e kidneys. Lung bases are clear. IMPRESSION: Nonacute abdomen. No evidence of any significant constipation.
--- NOTE | 2020-04-30 22:12 | ED ---
General Adult HPI - General Source: patient, RN notes reviewed, old records reviewed Mode of arrival: ambulatory <Hernesto Ross - Last Filed: 04/30/20 22:29> <Erlin Torres - Last Filed: 04/30/20 22:48> - General Chief complaint: Abdominal Pain Stated complaint: GI problems Time Seen by Provider: 04/30/20 19:43 - History of Present Illness Initial comments: 70-year-old male patient proceeded chief complaint of constipation. Patient reports that he has not had a bowel movement in 9 days. Patient was that he denies pain anywhere. States that today he did have some stool in the rectal vault and is able disimpact himself. Denies any other complaints. Systemic: Pt denies fatigue, fever/chills, rash. Pt denies weakness, night swea ts, weight loss. Neuro: Pt denies headache, visual disturbances, syncope or pre-syncope. HEENT: Pt denies ocular discharge or irritation, otalgia, rhinorrhea, pharyngitis or notable lymphadenopathy. Cardiopulmonary: Pt denies chest pain, SOB, heart palpitations, dyspnea on exertion. Abdominal/GI: Pt denies abdominal pain, n/v/d. : Pt denies dysuria, burning w/ urination, frequency/urgency. Denies new onset urinary or bowel incontinence. MSK: Pt denies myalgia, loss of strength or function in extremities. Neuro: Pt denies new onset weakness, paresthesias. (Hernesto Ross) - Related Data Home Medications Medication Instructions Recorded Confirmed Rivaroxaban [Xarelto] 20 mg PO DAILY@1600 10/31/18 04/30/20 Clindamycin HCl 300 mg PO Q8H 04/30/20 04/30/20 HYDROcodone/APAP 5-325MG [[place] 1 tab PO Q8H PRN 04/30/20 04/30/20 5-325] Wheat Dextrin [Benefiber] 1 pack PO DAILY 04/30/20 04/30/20 Allergies Allergy/AdvReac Type Severity Reaction Status Date / Time amoxicillin AdvReac Abdominal Verified 04/30/20 21:18 Pain Antihistamines - Alkylamine AdvReac Unknown Verified 04/30/20 21:18 morphine AdvReac Itching Verified 04/30/20 21:18 Review of Systems ROS Other: All systems not noted in ROS Statement are negative. <Hernesto Ross - Last Filed: 04/30/20 22:29> ROS Other: All systems not noted in ROS Statement are negative. <Erlin Torres - Last Filed: 04/30/20 22:48> ROS Statement: Those systems with pertinent positive or pertinent negative responses have been documented in the HPI. 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 Lower lip surgery to remove CA 04/25/20 Past Anesthesia/Blood Transfusion Reactions: No Reported Reaction Past Psychological History: No Psychological Hx Reported Smoking Status: Former smoker Past Alcohol Use History: None Reported Past Drug Use History: None Reported - Past Family History Mother Family Medical History: No Reported History Additional Family Medical History / Comment(s): mom is alive-healthy at age 92 is no major medical problems. Father Family Medical History: Cancer Additional Family Medical History / Comment(s): from reanl cancer at age 69 Sister(s) Family Medical History: Blood Disorder Additional Family Medical History / Comment(s): Patient has one sister with factor V deficiency. No other family members have any deficiency, clotting, bleeding disorders he denies any diabetes or heart disease in the family. Patient does not have any children. <Hernesto Ross - Last Filed: 04/30/20 22:29> General Exam <Hernesto Ross - Last Filed: 04/30/20 22:29> - General Exam Comments Initial Comments: Constitutional: NAD, AOX3, Pt has pleasant affect. HEENT: NC/AT, trachea midline, neck supple, no lymphadenopathy. Posterior pharynx non erythematous, without exudates. External ears appear normal, without discharge. Mucous membranes moist. Eyes PERRLA, EOM intact. There is no scleral icterus. No pallor noted. Cardiopulmonary: RRR, no murmurs, rubs or gallops, no JVD noted. Lungs CTAB in anterior and posterior alonzo. No peripheral edema. Abdominal exam: Abdomen soft and non-distended. Abdomen non-tender to palpation in all 4 quadrants. Bowel sounds active in LLQ. No hepatosplenomegaly. No ecchymosis Neuro: CN II-XII grossly intact. No nuchal rigidity. No raccon eyes, no helton sign, no hemotympanum. No cervical spinal tenderness. MSK: No posterior calf tenderness bilaterally, homans sign negative bilaterally. Posterior tibialis and radial pulse +2 bilaterally. Sensation intact in upper and lower extremities. Full active ROM in upper and lower extremities, 5/5 stregnth. (Hernesto Ross) Course <Erlin Torres - Last Filed: 04/30/20 22:48> Vital Signs 04/30/20 19:26 Temperature 98 F Pulse Rate 81 Respiratory 18 Rate Blood Pressure 145/86 O2 Sat by Pulse 99 Oximetry - Reevaluation(s) Reevaluation #1: 04/30/20 22:48 PA supervision: Patient was presenting to the emergency department tonight for her 90s of constipation. No fevers chills nausea vomiting sweats or other symptoms reported. He had disimpaction himself also. At this time no further workup was indicated patient will be discharged with citrate of magnesium and increase oral fluids. I do agree with the assessment and plan (Erlin Torres) Medical Decision Making <Hernesto Ross - Last Filed: 04/30/20 22:29> - Medical Decision Making 70-year-old male patient was evaluated for evaluation of constipation. Reports is not a bowel movement in 9 days. Physical exam displayed having soft and nontender. CBC displayed a significant amount of constipation. Patient was administered a glycerin suppository which did cause him to have a small bowel movement. Patient will be discharged with magnesium citrate that he will try at home and will otherwise follow up with his primary care provider tomorrow. Return precuations discussed. Case discussed with Dr. Torres. (Hernesto Ross) Disposition Is patient prescribed a controlled substance at d/c from ED?: No <Hernesto Ross - Last Filed: 04/30/20 22:29> <Erlin Torres - Last Filed: 04/30/20 22:48> Clinical Impression: Constipation Disposition: HOME SELF-CARE Condition: Stable Instructions (If sedation given, give patient instructions): Constipation (ED), High Fiber Diet (ED) Additional Instructions: Follow-up with primary care provider tomorrow. Drink half of bottle of magnesium citrate when you get home. Make sure that you drink lots of water. Return to ER if condition worsens. Referrals: Wayne Amaya MD [Primary Care Provider] - 1-2 days
[2020-04-30] MEDS ORDERED: MAGNESIUM CITRATE 296 ML BOTTLE PO ONE (22:29)
[2020-04-30 22:58] VITALS: BP 114/79; PULSE 78; RESP 17
== END 2020-04-30 22:58 | disposition home or self-care (01) ==
LOC: EC 19:24
DX: K59.00 Constipation, unspecified (principal); Z79.01 Long term (current) use of anticoagulants; Z86.711 Personal history of pulmonary embolism; Z86.718 Personal history of other venous thrombosis and embolism; Z87.891 Personal history of nicotine dependence; Z88.0 Allergy status to penicillin; Z88.5 Allergy status to narcotic agent
CPT/HCPCS: 74018; 99284

== ENCOUNTER → 2020-10-02 | Outpatient (CLI) | payer MEDICARE | END | disposition home or self-care (01) | LOC: LABPAT 13:12 | PROVIDERS: ATTEND Surgery | DX: Z53.9 Procedure and treatment not carried out, unspecified reason (principal) ==

== ENCOUNTER → 2020-10-05 | Outpatient (CLI) | payer MEDICARE | END | disposition home or self-care (01) | LOC: LABPAT 10:25 | PROVIDERS: ATTEND Surgery | DX: Z20.828 Contact with and (suspected) exposure to other viral communicable diseases (principal) ==

== ENCOUNTER 2020-10-09 07:19 | Day surgery (SDC) | payer MEDICARE ==
[2020-10-07 11:39] VITALS: BMI 25.7
[~2020-10-09 07:19] MED LIST: LIDOCAINE 1% (10MG/ML) FOR IV START INTRADERMA PRN
[2020-10-09] MEDS: LACTATED RINGERS 1,000 ML IV SCH ×2 (08:06→21:55)
[2020-10-09] MEDS ORDERED: ONDANSETRON 4 MG/2 ML VIAL ONE (08:22)
[2020-10-09] MEDS ORDERED: LIDOCAINE 1% (10MG/ML) FOR IV START INTRADERMA ONE (08:38)
[2020-10-09] MEDS ORDERED: DEXAMETHASONE SOD PHOSPHATE 4 MG/ML 1 ML VIAL IV ONE (08:40)
[2020-10-09] MEDS ORDERED: ONDANSETRON 4 MG/2 ML VIAL IVP ONE (08:40)
[2020-10-09] MEDS ORDERED: MIDAZOLAM 2 MG/2 ML VIAL IV ONE (08:47)
[2020-10-09] MEDS ORDERED: MIDAZOLAM 2 MG/2 ML VIAL ONE (09:03)
[2020-10-09] MEDS ORDERED: ROCURONIUM 10 MG/ML (10 ML VIAL) IV ONE (09:03)
[2020-10-09] MEDS ORDERED: GLYCOPYRROLATE 0.2 MG/ML 2 ML VIAL ONE (09:03)
[2020-10-09] MEDS ORDERED: ePHEDrine SULFATE/0.9% NACL/PF 50 MG/5 ML SYRINGE IV ONE (09:03)
[2020-10-09] MEDS ORDERED: NEOSTIGMINE 1 MG/ML 10 ML VIAL ONE (09:03)
[2020-10-09] MEDS ORDERED: fentaNYL (PF) 50 MCG/ML 2 ML AMP ONE (09:03)
[2020-10-09] MEDS ORDERED: SUCCINYLCHOLINE CHLORIDE 100 MG/5 ML SYR IV ONE (09:03)
[2020-10-09] MEDS ORDERED: PROPOFOL 10 MG/ML 20 ML VIAL IV ONE (09:03)
[2020-10-09] MEDS ORDERED: ROPIVACAINE 5 MG/ML 30 ML VIAL ONE (09:03)
[2020-10-09] MEDS ORDERED: LIDOCAINE 1% INJ 10MG/ML (20 ML MDV) ONE (09:03)
--- NOTE | 2020-10-09 09:07 | P.HPADDEND ---
H&P Addendum H&P Addendum Date: 10/09/20 There was a discrepancy between boarding slip and H&P. Will do a right inguinal hernia repair
--- NOTE | 2020-10-09 09:23 | P.ANPRN ---
Procedure Note - Anesthesia - Nerve Block Performed Bilateral Transversus Abdominis Single Time Out Performed: Yes ([id number]) Date of Procedure: 10/09/20 Procedure Start Time: 08:48 Procedure Stop Time: 08:56 Location of Patient: PreOp Indication: Acute Post-Operative Pain, Requested by Surgeon Specifically requested for management of pain by DrJamarcus: Eula Nunez Sedation Type: Sedate with meaningful contact maintained Preparation: Sterile Prep Position: Supine Catheter: None Needle Types: Pajunk Needle Gauge: 21 Ultrasound used to visualize needle placement: Yes Ultrasound used to observe medication spread: Yes Injectate: 0.5% Ropivacaine (see comment for volume) (20cc each side) Blood Aspirated: No Pain Paresthesia on Injection Noted: No Resistance on Injection: Normal Image Stored and Saved: Yes Events: Uneventful and Well Tolerated
[2020-10-09] MEDS ORDERED: LIDOCAINE 0.5%-EPI 1:200,000 50 ML VIAL SQ ONE ×2 (09:35→10:11)
[2020-10-09] MEDS ORDERED: LACTATED RINGERS 1,000 ML IV ONE (10:11)
[2020-10-09] MEDS ORDERED: HYDROcodone/APAP 5-325MG 1 EACH TAB PO PRN (10:19)
[2020-10-09] MEDS ORDERED: NALOXONE 0.4 MG/ML 1 ML VIAL IV PRN (10:19)
--- NOTE | 2020-10-09 10:19 | P.OP ---
Date of Procedure: 10/09/20 Preoperative Diagnosis: Umbilical hernia, right inguinal hernia Postoperative Diagnosis: Umbilical hernia, right inguinal hernia Procedure(s) Performed: Umbilical herniorrhaphy, right inguinal herniorrhaphy Anesthesia: PAGE Surgeon: Eula Nunez Estimated Blood Loss (ml): 10 Pathology: none sent Condition: stable Disposition: PACU Description of Procedure: The patient's taken the operative suite where he is prepped and draped in the usual sterile manner under general endotracheal anesthetic. A small infraumbilical incision was made. The umbilicus was dissected free from the underlying hernia sac. The fascial edges were identified and freshened. The preperitoneal space was then bluntly developed. Small bleeding points are controlled with electrocautery. Once adequate dissection was carried out, a small round mesh was placed in and the preperitoneal space. It gave good under coverage. The fascia was then closed taking bites of the mesh to secure it in place. It umbilicus was tacked down to the fascia using 4-0 Vicryl. The skin was closed with 4-0 Vicryl in a subcuticular manner. The area was covered with a sterile towel. The ASIS and pubic tubercle were then identified in the right groin. Care Home between those 2 points a 3 cm incision was made. The s ubcutaneous tissues were bluntly divided. The external oblique was opened along the direction of its fibers. The internal oblique was bluntly opened along the direction of its fibers. The transversalis fascia was opened vertically. A cord lipoma was then dissected free along with a large indirect hernia sac. The hernia sac was suture ligated and transected. Record and cord structures were dissected free to their bifurcation. The peritoneal space was then bluntly developed. A small oval mesh was then placed to the area and deployed. He gave good coverage of all potential hernia defect areas. No direct hernia defect was identified. The mesh was tacked to the fascia medially using a spiral tacker. The transversalis fascia was then closed with 0 Vicryl taking bites of the mesh to secure it in place. The internal oblique was allowed to fall back together. The external oblique was closed with 0 Vicryl. The skin incision was closed with 4-0 Vicryl in a subcuticular manner. Steri-Strips and dressings were applied. He tolerated the procedure without difficulty and was taken recovery room in satisfactory condition. According to or personnel, ARE correct. Plan - Discharge Summary Discharge Rx Participant: No New Discharge Prescriptions: New HYDROcodone/APAP 5-325MG [[place] 5-325] 1 - 2 tab PO Q4H PRN #30 tab PRN Reason: Pain No Action Rivaroxaban [Xarelto] 20 mg PO DAILY@1600 Wheat Dextrin [Benefiber] 1 pack PO DAILY Acetaminophen Tab [Tylenol Tab] 500 mg PO DAILY PRN PRN Reason: Pain Omeprazole 40 mg PO DAILY PRN PRN Reason: acid reflux Discharge Medication List Rivaroxaban [Xarelto] 20 mg PO DAILY@1600 10/31/18 [History] Wheat Dextrin [Benefiber] 1 pack PO DAILY 04/30/20 [History] Acetaminophen Tab [Tylenol Tab] 500 mg PO DAILY PRN 10/07/20 [History] Omeprazole 40 mg PO DAILY PRN 10/07/20 [History] HYDROcodone/APAP 5-325MG [[place] 5-325] 1 - 2 tab PO Q4H PRN #30 tab 10/09/20 [Rx] Follow up Appointment(s)/Referral(s): Eula Nunez DO [Doctor of Osteopathic Medicine] - 2 Weeks Activity/Diet/Wound Care/Special Instructions: Ice to the incision and scrotum for 24-48 hours. Leave the dressings on until Monday. Then they may be removed and you may shower. The incisions may be covered with a light dressing if there rubbing on clothing or draining. Expect some bruising. No lifting more than a gallon of milk. 2 tablespoons milk of magnesia as needed for constipation. Call if questions or concerns Discharge Disposition: HOME SELF-CARE
[2020-10-09] MEDS ORDERED: HYDROmorphone 0.5 MG/0.5 ML SYRINGE IVP ONE ×5 (10:25→11:00)
[2020-10-09] MEDS ORDERED: TAMSULOSIN 0.4 MG CAP.ER.24H PO ONE (13:38)
--- NOTE | 2020-10-09 14:39 | P.PN ---
Progress Note - Text Progress Note Date: 10/09/20 The patient has some urinary retention. He has a history of this after operations in the past and requested to start on Flomax. Giving prescription for 1 month.
[2020-10-09] MEDS ORDERED: PANTOPRAZOLE 40 MG TABLET PO PRN (18:40)
[2020-10-09] MEDS ORDERED: ACETAMINOPHEN TAB 500 MG TAB PO PRN (18:40)
[2020-10-09] MEDS ORDERED: RIVAROXABAN 20 MG TAB PO SCH (18:41)
[2020-10-10 05:23] VITALS: PULSE 70; TEMP 97.8
[2020-10-10 08:14] VITALS: BP 121/78; RESP 16
--- NOTE | 2020-10-10 11:54 | P.DS ---
Providers Expected date of discharge: 10/10/20 Attending physician: Eula Nunez Primary care physician: [facility] Course: The patient presented for a patient umbilical and inguinal hernia repair. He developed postoperative urinary retention. He was started on Flomax and monitored overnight. By postop day 1 he was urinating and felt to be stable for discharge Patient Condition at Discharge: Good Plan - Discharge Summary Discharge Rx Participant: No New Discharge Prescriptions: New HYDROcodone/APAP 5-325MG [Alvin 5-325] 1 - 2 tab PO Q4H PRN #30 tab PRN Reason: Pain Tamsulosin HCl [Flomax] 0.4 mg PO DAILY #30 capsule No Action Rivaroxaban [Xarelto] 20 mg PO DAILY@1600 Wheat Dextrin [Benefiber] 1 pack PO DAILY Acetaminophen Tab [Tylenol Tab] 500 mg PO DAILY PRN PRN Reason: Pain Omeprazole 40 mg PO DAILY PRN PRN Reason: acid reflux Discharge Medication List Rivaroxaban [Xarelto] 20 mg PO DAILY@1600 10/31/18 [History] Wheat Dextrin [Benefiber] 1 pack PO DAILY 04/30/20 [History] Acetaminophen Tab [Tylenol Tab] 500 mg PO DAILY PRN 10/07/20 [History] Omeprazole 40 mg PO DAILY PRN 10/07/20 [History] HYDROcodone/APAP 5-325MG [Alvin 5-325] 1 - 2 tab PO Q4H PRN #30 tab 10/09/20 [Rx] Tamsulosin HCl [Flomax] 0.4 mg PO DAILY #30 capsule 10/09/20 [Rx] Follow up Appointment(s)/Referral(s): Eula Nunez DO [Doctor of Osteopathic Medicine] - 2 Weeks (YOU WILL NEED TO CALL TO SCHEDULE YOUR FOLLOW UP APPOINTMENT UNLESS YOU ALREADY HAVE ONE MADE) Patient Instructions/Handouts: *Surgery [facility] - (Anesthesia) Discharge Instructions Outpatient Surgery, Inguinal Hernia Repair (DC), Umbilical Hernia Repair (DC) Activity/Diet/Wound Care/Special Instructions: Ice to the incision and scrotum for 24-48 hours. Leave the dressings on until Monday. Then they may be removed and you may shower. The incisions may be covered with a light dressing if there rubbing on clothing or draining. Expect some bruising. No lifting more than a gallon of milk. 2 tablespoons milk of magnesia as needed for constipation. Call if questions or concerns Discharge Disposition: HOME SELF-CARE
== END 2020-10-10 11:30 | disposition home or self-care (01) ==
LOC: OR 07:19 → 1SOBS 16:50 → OR 10-10 11:30
PROVIDERS: ATTEND Surgery
DX: K42.9 Umbilical hernia without obstruction or gangrene (principal); K40.90 Unilateral inguinal hernia, without obstruction or gangrene, not specified as recurrent; K21.9 Gastro-esophageal reflux disease without esophagitis; K22.70 Barrett's esophagus without dysplasia; Z87.19 Personal history of other diseases of the digestive system; Z86.79 Personal history of other diseases of the circulatory system; Z85.828 Personal history of other malignant neoplasm of skin; Z86.718 Personal history of other venous thrombosis and embolism; Z98.890 Other specified postprocedural states; R33.8 Other retention of urine; Z79.01 Long term (current) use of anticoagulants; Z79.899 Other long term (current) drug therapy; Z88.5 Allergy status to narcotic agent; Z88.0 Allergy status to penicillin; Z88.8 Allergy status to other drugs, medicaments and biological substances; D17.6 Benign lipomatous neoplasm of spermatic cord
CPT/HCPCS: 64488; 49505; 49585; C1781 ×2; J2250; J1100; J2710; J0690; J2405; J2001; J3010; J2795; J0330; J2704; J1170

== ENCOUNTER → 2020-10-19 | Day surgery (SDC) | payer MEDICARE ==
[2020-10-14 15:46] VITALS: BMI 24.0
[~2020-10-19] MED LIST changes: +LACTATED RINGERS 1,000 ML IV SCH; +LIDOCAINE 1% INJ 10MG/ML (20 ML MDV) ONE; +PROPOFOL 10 MG/ML 20 ML VIAL IV ONE
[2020-10-19 08:34] VITALS: TEMP 97.4
--- NOTE | 2020-10-19 09:14 | P.PCN ---
Date of Procedure: 10/19/20 Preoperative Diagnosis: Guzman's esophagus Postoperative Diagnosis: Guzman's esophagitis, duodenitis, sliding hiatal hernia Procedure(s) Performed: EGD with biopsy Anesthesia: MAC Surgeon: Eula Nunez Pathology: other Condition: stable Disposition: PACU Indications for Procedure: Patient presents for 3 years surveillance EGD due to Guzman's esophagus Description of Procedure: The patient's taken to the endoscopy suite where a gastroscope is passed per mouth to the third and fourth portions of the duodenum. He has about 2-3 cm section of Guzman's esophagus without any evidence of significant inflammation. There is a small sliding hiatal hernia. The stomach is without evidence of polyp, mass lesion, ulcer or other mucosal abnormality. The duodenum shows some mild erythema in the duodenal bulb and cold biopsies were obtained. He tolerated the procedure without difficulty and was taken recovery room in satisfactory condition. According with the report of the biopsies and let him know when his repeat endoscopy should be performed that's into the dictation graeme nks Plan - Discharge Summary Discharge Rx Participant: No New Discharge Prescriptions: No Action Rivaroxaban [Xarelto] 20 mg PO DAILY@1600 Wheat Dextrin [Benefiber] 1 pack PO DAILY Acetaminophen Tab [Tylenol Tab] 500 mg PO DAILY PRN PRN Reason: Pain Omeprazole 40 mg PO DAILY PRN PRN Reason: acid reflux Tamsulosin HCl [Flomax] 0.4 mg PO DAILY #30 capsule Discharge Medication List Rivaroxaban [Xarelto] 20 mg PO DAILY@1600 10/31/18 [History] Wheat Dextrin [Benefiber] 1 pack PO DAILY 04/30/20 [History] Acetaminophen Tab [Tylenol Tab] 500 mg PO DAILY PRN 10/07/20 [History] Omeprazole 40 mg PO DAILY PRN 10/07/20 [History] Tamsulosin HCl [Flomax] 0.4 mg PO DAILY #30 capsule 10/09/20 [Rx] Discharge Disposition: HOME SELF-CARE
[2020-10-19 09:21] VITALS: RESP 16
[2020-10-19 09:36] VITALS: BP 123/85
[2020-10-19 09:48] VITALS: PULSE 69
== END | disposition home or self-care (01) ==
LOC: ORWHC2ENDO 08:21
PROVIDERS: ATTEND Surgery
DX: K22.70 Barrett's esophagus without dysplasia (principal); K21.9 Gastro-esophageal reflux disease without esophagitis; K44.9 Diaphragmatic hernia without obstruction or gangrene; K29.80 Duodenitis without bleeding; N43.3 Hydrocele, unspecified; N40.0 Benign prostatic hyperplasia without lower urinary tract symptoms; Z85.828 Personal history of other malignant neoplasm of skin; Z86.718 Personal history of other venous thrombosis and embolism; Z98.890 Other specified postprocedural states; Z80.51 Family history of malignant neoplasm of kidney; Z88.5 Allergy status to narcotic agent; Z79.01 Long term (current) use of anticoagulants; Z79.899 Other long term (current) drug therapy; Z88.0 Allergy status to penicillin; Z88.8 Allergy status to other drugs, medicaments and biological substances
CPT/HCPCS: 88305; 43239; J2001; J2704

== ENCOUNTER → 2020-10-20 | Outpatient (CLI) | payer MEDICARE ==
--- NOTE | 2020-10-20 10:54 | CT ---
EXAMINATION TYPE: CT soft tissue neck w con DATE OF EXAM: 10/20/2020 HISTORY: Squamous cell carcinoma of the lip. COMPARISON: CT neck March 31, 2020 CT DLP: 383.8 mGycm. Automated Exposure Control for Dose Reduction was Utilized. TECHNIQUE: CT scan of the neck is performed with IV Contrast, patient injected with 100 ml mL of Iso crystal 300, axial images are obtained, coronal and sagittal reformatted images are reviewed. FINDINGS: Airway: Persistent limitations due to artifact from cavitary fillings and crowns otherwise airway rem ains grossly patent. Parotid/submandibular glands: Stable subcentimeter lymph nodes throughout the parotid glands bilatera lly are redemonstrated. Carotid/Vascular Structures: No significant abnormality is seen. Osseous Structures: Slight scoliotic curvature on coronal images redemonstrated. Exaggerated curvatur e on sagittal images redemonstrated. No new suspicious lytic or sclerotic lesions. Other: Scattered subcentimeter lymph nodes throughout the neck bilaterally are stable or smaller in s ize, for reference left submental lymph node at level of hyoid bone measures 7 x 5 mm current study i mage 56 slightly smaller versus prior study. No new greater than 1 cm lymph nodes are appreciated. IMPRESSION: No suspicious new or enlarging greater than 1 cm lymph nodes.
== END | disposition home or self-care (01) ==
LOC: RADCTMAIN 09:27
PROVIDERS: ATTEND Otolaryngology
DX: C44.02 Squamous cell carcinoma of skin of lip (principal); K13.0 Diseases of lips
CPT/HCPCS: 82565; 84520; 70491; 36415; Q9967

== ENCOUNTER → 2021-11-26 | Outpatient (CLI) | payer MEDICARE ==
--- NOTE | 2021-11-26 09:08 | CT ---
EXAMINATION TYPE: CT soft tissue neck w con DATE OF EXAM: 11/26/2021 HISTORY: Squamous Cell Ca of lip COMPARISON: Prior CT neck October 20, [address] DLP: 594 mGycm. Automated Exposure Control for Dose Reduction was Utilized. TECHNIQUE: CT scan of the neck is performed with IV Contrast, patient injected with 80 ml mL of Isov ue 300, axial images are obtained, coronal and sagittal reformatted images are reviewed. FINDINGS: Airway: Suboptimal study due to artifact from cavitary fillings and crowns is redemonstrated. Airway otherwise remains grossly patent. Parotid/submandibular glands: Stable subcentimeter lymph nodes throughout the parotid glands bilatera lly are redemonstrated. Carotid/Vascular Structures: No significant abnormality is seen. Osseous Structures: Slight scoliotic curvature on coronal images is redemonstrated. Exaggerated curva ture on sagittal images is redemonstrated. No new suspicious lytic or sclerotic lesions. Other: Scattered subcentimeter lymph nodes throughout the neck bilaterally are stable or smaller in s ize, for reference left submental lymph node at level of hyoid bone measures 7 x 5 mm current study a xial image 44 stable from most recent prior study. No new greater than 1 cm lymph nodes are appreciat ed. IMPRESSION: No suspicious new or enlarging greater than 1 cm lymph nodes to suggest malignant recurr ence.
== END | disposition home or self-care (01) ==
LOC: RADCTMAIN 07:23
PROVIDERS: ATTEND Otolaryngology
DX: C44.02 Squamous cell carcinoma of skin of lip (principal); K13.0 Diseases of lips
CPT/HCPCS: 82565; 84520; 70491; 36415; Q9967

== ENCOUNTER → 2023-09-12 | Outpatient (CLI) | payer MEDICARE ==
[2023-09-12 15:58] LABS: HCT 49.1 % (39.6-50.0); HGB 16.3 d/dL (13.0-17.0); MCH 33.6 pg (27.0-32.0); MCHC 33.2 d/dL (32.0-37.0); MCV 101.2 FL (80.0-97.0); NRBC Per 100 WBC 0.02 X 10*3/uL (0.00-0.01); Platelet Count 150 X 10*3/uL (140-440); RBC 4.85 X 10*6/uL (4.40-5.60); RDW 12.3 % (11.5-14.5)
[2023-09-12 15:59] LABS: Basophils # (A) 0.04 X 10*3/uL (0.00-0.10); Basophils % (A) 0.8 %; Eosinophils # (A) 0.08 X 10*3/uL (0.04-0.35); Eosinophils % (A) 1.6 %; Lymphocytes # (A) 1.84 X 10*3/uL (0.90-5.00); Lymphocytes % (A) 36.1 %; Monocytes # (A) 0.43 X 10*3/uL (0.20-1.00); Monocytes % (A) 8.4 %; Neutrophils % (A) 52.9 %
[2023-09-12 16:00] LABS: ALT 14 U/L (10-49); AST 16 U/L (14-35); Albumin 4.4 d/dL (3.8-4.9); Albumin/Globulin Ratio 1.69 Ratio (1.60-3.17); Alkaline Phosphatase 65 U/L (41-126); BUN/Creat Ratio 9.46 Ratio (12.00-20.00); Blood Urea Nitrogen 12.3 mg/dL (9.0-27.0); Calcium 9.6 mg/dL (8.7-10.3); Carbon Dioxide 25.9 mmol/L (21.6-31.8); Chloride 104 mmol/L (96-109); Chol/HDL Ratio 4.26 Ratio; Globulin 2.6 d/dL (1.6-3.3); Glucose 92 mg/dL (70-110); LDL Cholesterol,Calculated 116.4 mg/dL (0.0-131.0); Potassium 5.1 mmol/L (3.5-5.5); Prostate Specific Antigen 5.54 ng/mL (0.000-6.500); Sodium 141 mmol/L (135-145); Total Bilirubin 0.9 mg/dL (0.3-1.2)
== END | disposition home or self-care (01) ==
LOC: LABWHC1 09:45
PROVIDERS: ATTEND Internal Medicine Geriatric Medicine
DX: N18.2 Chronic kidney disease, stage 2 (mild) (principal); K22.70 Barrett's esophagus without dysplasia; E78.5 Hyperlipidemia, unspecified; R97.20 Elevated prostate specific antigen [PSA]
CPT/HCPCS: 36415; 80053; 80061; 84153; 84443; 85025

== ENCOUNTER → 2024-05-06 | Outpatient (CLI) | payer MEDICARE | END | disposition home or self-care (01) | LOC: LABWHC1 14:22 | PROVIDERS: ATTEND Urology | DX: R97.20 Elevated prostate specific antigen [PSA] (principal) | CPT/HCPCS: 36415; 84153 ==

== ENCOUNTER → 2025-01-07 | Outpatient (CLI) | payer MEDICARE ==
[2025-01-07 10:09] LABS: African American GFR (CKD) 62 (>60 ml/min/1.73 sqM); Blood Urea Nitrogen 17 mg/dL (9-20); Non-African American GFR(CKD) 54 (>60 ml/min/1.73 sqM)
--- NOTE | 2025-01-07 11:00 | CT ---
EXAMINATION TYPE: CT brain wo/w con CT DLP: 2410 mGycm, Automated exposure control for dose reduction was used. DATE OF EXAM: 01/07/2025 10:52 AM COMPARISON: CT brain 02/12/2019. CLINICAL INDICATION:Male, 74 years old with history of R51.9 HEADACHE; PHH, TECHNIQUE: Axial CT images of the brain were obtained followed by contrast enhanced axial images of t he brain with 80 cc of ISO-view 300 IV contrast. One or more CT dose reduction strategies were utiliz ed during this examination. Coronal and sagittal reformats reviewed. FINDINGS: Extra-axial spaces: No abnormal extra-axial fluid collections. Anterior falx calcification. Ventricular system: Within normal limits Cerebral parenchyma: Age appropriate cerebral volume loss. No acute intraparenchymal hemorrhage or ma ss effect. The jacques-white junction is well differentiated. Empty sella morphology. No abnormal enhan cement is seen after the administration of intravenous contrast. Cerebellum: Unremarkable. Mass effect: No evidence of midline shift. Intracranial vasculature: unremarkable Soft tissues: Normal. Calvarium/osseous structures: No depressed skull fracture. Paranasal sinuses and mastoid air cells: Clear. Visualized orbits: Right aphakia IMPRESSION: No acute intracranial process and no evidence to suggest intracranial mass. [facility], , 01/07/2025 10:57 AM
== END | disposition home or self-care (01) ==
LOC: RADCTMAIN 09:26
PROVIDERS: ATTEND Internal Medicine Geriatric Medicine
DX: R51.9 Headache, unspecified (principal)
CPT/HCPCS: 82565; 84520; 70470; 36415; Q9967

== ENCOUNTER → 2025-03-06 | Outpatient (CLI) | payer MEDICARE ==
--- NOTE | 2025-03-06 08:40 | XR ---
EXAMINATION TYPE: XR thoracic spine 3 views complete, XR lumbar spine 3V DATE OF EXAM: 03/06/2025 7:29 AM COMPARISON: None CLINICAL INDICATION: Male, 75 years old with history of M54.50 LOW BACK PAIN; PHH, mid to lower back pain FINDINGS: Thoracic spine: 12 rib bearing thoracic vertebral bodies. There is osteopenia limiting evaluation. Gentle S-shaped cu rvature of the thoracolumbar spine especially with the levoconvex component along the lower thoracic spine. There is accentuated midthoracic kyphosis. Some bridging anterior endplate spondylosis along 3 segments in the upper third thoracic spine. An additional bridging anterior endplate spur T12-L1. Sc attered mild and moderate degenerative disc disease. Vertebral body heights appear maintained and ali gnment appears preserved. Lumbar spine: 5 lumbar type vertebral bodies. Moderate to severe degenerative disc disease L4-L5 and L5-S1. Baastru p's disease and hypertrophic facet arthropathy lower lumbar spine. Mild superior endplate deformities L2 and L3 suggesting age indeterminate Schmorl's nodes. Overall vertebral body heights are preserved . Alignment is maintained. IMPRESSION: Thoracic spine: 1. Gentle S-shaped curvature. Accentuated midthoracic kyphosis. 2. Scattered mild and moderate degenerative disc disease with scattered bridging anterior endplate sp ondylosis upper third thoracic spine and at T12-L1. 3. No moon vertebral compression collapse or malalignment seen. Lumbar spine: 4. Hypertrophic facet arthropathy mid to lower lumbar spine with Baastrup's disease. 5. Moderate to severe degenerative disc disease L4-L5 and L5-S1. 6. Mild superior endplate deformities at L2 and L3; suspect age indeterminate Schmorl's nodes. Correl ate for any focal pain at these levels. Overall vertebral body heights are preserved. [facility], , 03/06/2025 8:37 AM
== END | disposition home or self-care (01) ==
LOC: RADXRMAIN 06:58
PROVIDERS: ATTEND Internal Medicine Geriatric Medicine
DX: M51.372 Other intervertebral disc degeneration, lumbosacral region with discogenic back pain and lower extremity pain (principal); M47.817 Spondylosis without myelopathy or radiculopathy, lumbosacral region; M48.26 Kissing spine, lumbar region
CPT/HCPCS: 72072; 72100

== ENCOUNTER → 2025-05-06 | Outpatient (CLI) | payer MEDICARE | END | disposition home or self-care (01) | LOC: LABWHC1 09:07 | PROVIDERS: ATTEND Urology | DX: N40.1 Benign prostatic hyperplasia with lower urinary tract symptoms (principal); N13.8 Other obstructive and reflux uropathy | CPT/HCPCS: 36415; 84153 ==

== ENCOUNTER → 2025-05-20 | Outpatient (CLI) | payer MEDICARE ==
--- NOTE | 2025-05-20 21:40 | XR ---
EXAMINATION TYPE: XR ribs LT w pa chest xray DATE OF EXAM: 05/20/2025 12:06 PM COMPARISON: 10/07/2019 CLINICAL INDICATION: Male, 75 years old with history of M94.0 CHONDROCOSTAL JUNCTION SYNDROME [TIETZE ]; PHH, pain TECHNIQUE: 5 views FINDINGS: Heart normal size. Aorta and pulmonary vasculature within normal limits. Mild interstitial prominence and mild hyperinflation. The presence of osteopenia limits evaluation. No definite displaced left ri b fracture is seen. IMPRESSION: COPD and chronic changes. No displaced left rib fracture is seen. Limited due to osteopenia. [facility], Workstation: [facility], 05/20/2025 9:38 PM
== END | disposition home or self-care (01) ==
LOC: RADXRMAIN 11:33
PROVIDERS: ATTEND Internal Medicine Geriatric Medicine
DX: M94.0 Chondrocostal junction syndrome [Tietze] (principal); J44.9 Chronic obstructive pulmonary disease, unspecified; M85.80 Other specified disorders of bone density and structure, unspecified site